=== PATIENT | male | born 1955 | race Caucasian/White ===

== ENCOUNTER → 2020-02-01 11:25 | Outpatient (BNVA) | payer MEDICARE, SELFPAY | PROVIDERS: Family Provider Family Medicine; Visit Provider Nurse Practitioner Family | DX: Z20.828 Contact with and (suspected) exposure to other viral communicable diseases (principal); J06.9 Acute upper respiratory infection, unspecified; R43.0 Anosmia | CPT/HCPCS: 87635 ==

== ENCOUNTER → 2023-06-13 08:38 | Outpatient (BNVA) | payer MEDICARE, SELFPAY | PROVIDERS: Family Provider Family Medicine; PCP Family Medicine; Visit Provider Nurse Practitioner Family | DX: C44.311 Basal cell carcinoma of skin of nose (principal); L30.4 Erythema intertrigo; L57.8 Other skin changes due to chronic exposure to nonionizing radiation; D22.5 Melanocytic nevi of trunk; L81.4 Other melanin hyperpigmentation; L82.1 Other seborrheic keratosis | CPT/HCPCS: 11102; 99214 ==

== ENCOUNTER → 2023-07-01 14:36 | Outpatient (BNVA) | payer MEDICARE, SELFPAY | PROVIDERS: Family Provider Family Medicine; PCP Family Medicine; Visit Provider Dermatology | DX: C44.311 Basal cell carcinoma of skin of nose (principal); C44.629 Squamous cell carcinoma of skin of left upper limb, including shoulder; C44.42 Squamous cell carcinoma of skin of scalp and neck; S50.811A Abrasion of right forearm, initial encounter; X58.XXXA Exposure to other specified factors, initial encounter; Z86.006 Personal history of melanoma in-situ; L57.0 Actinic keratosis; Z85.828 Personal history of other malignant neoplasm of skin | CPT/HCPCS: 99214 ==

== ENCOUNTER → 2023-07-31 11:25 | Outpatient (BNVA) | payer MEDICARE, SELFPAY | PROVIDERS: Family Provider Family Medicine; PCP Family Medicine; Visit Provider Dermatology | DX: C44.311 Basal cell carcinoma of skin of nose (principal); C44.629 Squamous cell carcinoma of skin of left upper limb, including shoulder; C44.42 Squamous cell carcinoma of skin of scalp and neck; Z86.006 Personal history of melanoma in-situ; Z85.828 Personal history of other malignant neoplasm of skin; L57.0 Actinic keratosis | CPT/HCPCS: 17000; 99214 ==

== ENCOUNTER → 2023-10-09 14:35 | Outpatient (BNVA) | payer MEDICARE, SELFPAY | PROVIDERS: Family Provider Family Medicine; PCP Family Medicine; Visit Provider Dermatology | DX: C44.311 Basal cell carcinoma of skin of nose (principal); C44.629 Squamous cell carcinoma of skin of left upper limb, including shoulder; C44.42 Squamous cell carcinoma of skin of scalp and neck; Z86.006 Personal history of melanoma in-situ; Z85.828 Personal history of other malignant neoplasm of skin; L72.0 Epidermal cyst; L82.1 Other seborrheic keratosis; L81.4 Other melanin hyperpigmentation; L57.0 Actinic keratosis | CPT/HCPCS: 99214 ==

== ENCOUNTER → 2024-01-15 14:40 | Outpatient (BNVA) | payer MEDICARE, SELFPAY | PROVIDERS: Family Provider Family Medicine; PCP Family Medicine; Visit Provider Dermatology | DX: D48.5 Neoplasm of uncertain behavior of skin (principal); C44.311 Basal cell carcinoma of skin of nose; C44.629 Squamous cell carcinoma of skin of left upper limb, including shoulder; C44.42 Squamous cell carcinoma of skin of scalp and neck; L57.0 Actinic keratosis; L82.1 Other seborrheic keratosis; L81.4 Other melanin hyperpigmentation; Z85.828 Personal history of other malignant neoplasm of skin; Z86.006 Personal history of melanoma in-situ | CPT/HCPCS: 11102; 17000; 99214 ==

== ENCOUNTER 2024-04-23 11:32 | Inpatient (IN) | payer MEDICARE, SELFPAY ==
[2024-04-23] VITALS (7 sets, daily range): BP systolic 119–166; BP diastolic 57–90; PULSE 78–83; RESP 18–22; TEMP 36.4–36.6; O2SAT 90–99
--- NOTE | 2024-04-23 11:39 | XR_ITS ---
WS: [id number] Exam: XR chest 1V portable [id number] Date/Time of Exam: 04/23/2024 11:39 AM Reason For Exam: weakness Comparison 06/11/2018. Lungs are fully expanded. No consolidated infiltrates. LEFT basal pleural effusion. Also probable sma ll RIGHT basal pleural effusion. The heart is enlarged but unchanged in size. Slightly increased pulm onary vascularity. Bony structures are intact. The mediastinum is normal in contour. XR/XR chest 1V portable [id number] IMPRESSION: 1. Small bibasal pleural effusions. 2. Cardiac enlargement unchanged. Pulmonary vascularity is increased. Some degr ee of mild cardiac decompensation might be considered.
--- NOTE | 2024-04-23 11:39 | ECG_ITS ---
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 Measurements Intervals [place] Rate: 79 P: 0 ME: 0 QRS: -74 QRSD: 101 T: 80 QT: 380 QTc: 437 Interpretive Statements SUPRAVENTRICULAR RHYTHM LEFT AXIS DEVIATION [QRS AXIS < -30] LOW QRS VOLTAGE IN PRECORDIAL LEADS [QRS DEFLECTION < 1.0 mV IN CHEST LEADS] ANTEROLATERAL MYOCARDIAL INFARCTION , PROBABLY OLD [40+ ms Q WAVE IN I/aVL/V3-V6] Compared to ECG 06/12/2018 04:53:14 Supraventricular rhythm now present Left-axis deviation now present Sinus rhythm no longer present Left ventricular hypertrophy no longer present ST (T wave) deviation no longer present Myocardial infarct finding still present Electronically Signed On 04-24-2024 13:19:22 LOAN SECRETARY by Elio Wang M.D. [id number]
[2024-04-23 12:18] LABS: Basophils % 0.6 %; Eosinophils # 0.5 10^3/uL (0.0-0.8); Eosinophils % 7.7 %; Hematocrit 36.8 % (37-53); Lymphocytes # 0.8 10^3/uL (0.8-4.8); Lymphocytes % 12.8 %; Mean Corpuscular HGB Conc 28.8 g/dL (30-55); Mean Corpuscular Hemoglobin 24.4 pg (27-33); Mean Corpuscular Volume 84.8 fl (82-101); Mean Platelet Volume 9.5 fL (7.4-10.4); Monocytes # 0.5 10^3/uL (0.2-0.9); Monocytes % 7.5 %; Neutrophils % 70.8 %; Nucleated Red Blood Cells % 0 %; Platelet Count 309 10^3/cmm (157-399); Red Blood Count 4.34 10^6/uL (3.85-5.65); Red Cell Distribution Width 16.9 % (12.1-15.1); White Blood Count 6.23 10^3/uL (3.29-11.43)
[2024-04-23 12:35] LABS: Alanine Aminotransferase < 5 U/L (0-41); Albumin Level 3.3 g/dL (3.5-5.2); Alkaline Phosphatase 199 U/L (40-130); Anion Gap 19.1 (5-19); Aspartate Amino Transferase 9 U/L (0-40); Blood Urea Nitrogen 41 mg/dL (8-23); Calcium 8.5 mg/dL (8.5-10.5); Carbon Dioxide 21 mmol/L (22-29); Chloride 103 mmol/L (98-107); Globulin 3.1 g/dL (1.3-4.6); Glomerular Filtration Rate 19.5 mL/min (90-130); Glucose 219 mg/dL (65-115); Lipase 28 U/L (13-60); Osmolality Calculated 305 mOsm/kg (285-295); Potassium 4.1 mmol/L (3.5-5.1); Sodium 139 mmol/L (136-145); Total Bilirubin 0.8 mg/dL (0.15-1.2); Total Protein 6.4 g/dL (6.6-8.7)
--- NOTE | 2024-04-23 13:17 | W.ED.WEAKNES ---
HPI - Weakness General: Chief complaint: Weakness Stated complaint: generalized weakness Time Seen by Provider: 04/23/24 12:49 History of Present Illness: 68-year-old man with a history of morbid obesity, skin cancer taking injections of Libtayo every 3 weeks, atrial fibrillation and chronic anticoagulation on Eliquis, hyperlipidemia, hypertension, diabetes, congestive heart failure, and chronic kidney disease who presents emergency room with generalized weakness that has been worsening over the last month or 2. They had gone to see their primary today who sent him to the emergency room. He was requiring oxygen. He is not normally. He has has increased cough. Also has had nausea and vomiting for some time now. No altered mental status. No focal motor deficits. No fevers. No abdominal pain. says he is just gotten so weak he can barely get up. No chest pain. He does feel short of breath often. She says when he gets short of breath sometimes she will let him use his oxygen which helped him. Review of Systems Narrative: Constitutional symptoms: Negative except as documented in HPI. Skin symptoms: Negative except as documented in HPI. Eye symptoms: Negative except as documented in HPI. ENMT symptoms: Negative except as documented in HPI. Respiratory symptoms: Negative except as documented in HPI. Cardiovascular symptoms: Negative except as documented in HPI. Gastrointestinal symptoms: Negative except as documented in HPI. Genitourinary symptoms: Negative except as documented in HPI. Musculoskeletal symptoms: Negative except as documented in HPI. Neurologic symptoms: Negative except as documented in HPI. Psychiatric symptoms: Negative except as documented in HPI. Endocrine symptoms: Negative except as documented in HPI. [facility] PFSH: Medical History Anemia Bronchitis CAD (coronary artery disease) Chest pain Chronic kidney disease, stage 3 Dental infection Dyspnea Epistaxis History of malignant melanoma History of nonmelanoma skin cancer Hypercholesterolemia Hypokalemia Lung mass Palpitations Sleep apnea Solitary lung nodule Type 2 diabetes mellitus Surgical History Status post tracheostomy Social History Smoking and tobacco/nicotine status: never used tobacco/nicotine Second hand smoke exposure: Yes Alcohol intake: never Substance/Drug Use: never Physical Exam Narrative: EXAM NARRATIVE: General: Alert, no acute distress. Skin: Warm, dry. Head: Normocephalic, atraumatic. Neck: Supple, trachea midline. Eye: Extraocular movements are intact. Ears, nose, mouth and throat: Tacky oral mucosa Cardiovascular: Regular, Normal peripheral perfusion. Respiratory: Coarse breath sounds, mild increased work of breathing. Patient is requiring oxygen. Gastrointestinal: Soft, Nontender, Non distended Musculoskeletal: Normal ROM, no deformity. Neurological: Alert and oriented, No focal neurological deficit observed. Psychiatric: Cooperative, appropriate mood & affect. Course Vital Signs: Vital signs: Vital Signs Temperature 97.5 F L 04/23/24 11:50 Pulse Rate 78 04/23/24 14:07 Respiratory Rate 18 04/23/24 11:50 Blood Pressure 158/74 04/23/24 14:07 Pulse Oximetry 98 04/23/24 14:07 Oxygen Delivery Me thod Room Air 04/23/24 14:07 MDM - Weakness Medical Decision Making Medical decision making: Differential diagnosis for patient presenting with generalized weakness including but not limited to and based on the above HPI, review of systems and physical exam: Sepsis. Dehydration. Renal failure. Electrolyte abnormalities. Anemia. Congestive heart failure. Hypotension. Coronary syndrome. Hepatitis. Cirrhosis. Infections such as pneumonia, urinary tract infection, Tick bourne illness, Cellulitis, Viral infections including influenza and Covid-19. Workup: labwork and lab/exam driven imaging ordered to evaluate, rule in and rule out above pathologies. EKG: Time 1259. Rate 79. Supraventricular rhythm. Interference. Nonspecific ST wave abnormality, no ectopy, normal TX & QRS intervals, This was reviewed and interpreted by myself the ER physician at 1302. Repeat EKG: Time 1526. Rate 80. Supraventricular rhythm. Interference. Nonspecific ST wave abnormality, no ectopy, normal TX & QRS intervals, This was reviewed and interpreted by myself the ER physician at 1530. No significant changes from EKG done previously in the emergency room. Chest x-ray: Small bibasal pleural effusions. Cardiac enlargement unchanged. Increased pulmonary vascularity. However on exam he appears dry. No pneumothorax. This was reviewed and interpreted by myself the emergency room physician. I also reviewed the radiology report. Lab Review: Laboratory results were reviewed and interpreted by myself the emergency room physician. No leukocytosis. Stable anemia. BUN and creatinine are 41 and 3.2. This is elevated from his labs in 2019, however I reviewed labs from 3 days ago and from a month ago at [facility]. Most recently he was 43 and 3.5. Hemoglobin was 10.5 at that time so that is stable as well. Urinalysis is negative for infection here. However he is positive for RSV. AB.2 on 2 L nasal cannula. O2 sat is 95% on this 2 L. Some metabolic acidosis but minimal CO2 retention. I reviewed the patient's medical record. Reexamination: Patient has sats in the upper 90s on 2 L nasal cannula. However he drops when off with any movement. He is extremely weak still. No altered mental status while he is been here. No focal motor deficits. While at rest no increased work of breathing. And while on oxygen. Consultation: I spoke with Dr. Ring who is on-call for the hospitalist service who agrees to admission. Assessment and plan: RSV Hypoxemia Congestive heart failure Weakness Debility Chronic renal insufficiency Malignant melanoma receiving chemotherapy Atrial fibrillation on chronic anticoagulation ?Patient stable on 2 L nasal cannula at this time. PCP and family are extremely worried about his worsening weakness and requesting further workup into this. -I discussed the patient with the hospitalist on-call who is admitting the patient. - Discussed findings and plan with patient. Answered any questions. - All laboratory values were reviewed and interpreted personally by myself, the ER physician - All imaging was reviewed and interpreted personally by myself, the ER physician. - Evaluation and treatment of this problem were appropriate in the emergency setting Lab Data 04/23/24 12:01 04/23/24 12:01 Radiology Impressions Chest X-Ray 04/23/24 11:39 IMPRESSION: 1. Small bibasal pleural effusions. 2. Cardiac enlargement unchanged. Pulmonary vascularity is increased. Some degree of mild cardiac decompensation might be considered. Laboratory Results WBC 6.23 10^3/uL (3.29-11.43) 04/23/24 12:01 RBC 4.34 10^6/uL (3.85-5.65) 04/23/24 12:01 Hgb 10.60 g/dL (11.27-16.99) L 04/23/24 12:01 Hct 36.8 % (37-53) L 04/23/24 12:01 MCV 84.8 fl (82-101) 04/23/24 12:01 MCH 24.4 pg (27-33) L 04/23/24 12:01 MCHC 28.8 g/dL (30-55) L 04/23/24 12:01 RDW 16.9 % (12.1-15.1) H 04/23/24 12:01 Plt Count 309 10^3/cmm (157-399) 04/23/24 12:01 MPV 9.5 fL (7.4-10.4) 04/23/24 12:01 Neut % (Auto) 70.8 % 04/23/24 12:01 Lymph % (Auto) 12.8 % 04/23/24 12:01 Moody % (Auto) 7.5 % 04/23/24 12:01 Eos % (Auto) 7.7 % 04/23/24 12:01 Baso % (Auto) 0.6 % 04/23/24 12:01 Neut # (Auto) 4.40 10^3/uL (1.8-7.7) 04/23/24 12:01 Lymph # (Auto) 0.8 10^3/uL (0.8-4.8) 04/23/24 12:01 Moody # (Auto) 0.5 10^3/uL (0.2-0.9) 04/23/24 12:01 Eos # (Auto) 0.5 10^3/uL (0.0-0.8) 04/23/24 12:01 Baso # (Auto) 0.0 10^3/uL (0.0-0.1) 04/23/24 12:01 Nucleated RBC % (auto) 0 % 04/23/24 12:01 Nucleated RBCs # 0.0 /100WBC 04/23/24 12:01 Specimen Type Arterial 04/23/24 13:53 Sample Site Radial, right 04/23/24 13:53 ABG pH 7.25 (7.35-7.45) L 04/23/24 13:53 ABG pCO2 53.5 mmHg (35-45) H 04/23/24 13:53 ABG pO2 92.2 mmHg (80.0-100.0) 04/23/24 13:53 ABG HCO3 23.7 mmol/L (22-26) 04/23/24 13:53 ABG O2 Saturation 97.2 04/23/24 13:53 ABG Base Excess -3.8 mmol/L (-2.0-2.0) L 04/23/24 13:53 Jose Angel Test Pos 04/23/24 13:53 A-a O2 Gradient Not Reportable 04/23/24 13:53 Hematocrit 32.3 % (42-52) L 04/23/24 13:53 Hgb O2 Saturation 94.6 % (95-100) L 04/23/24 13:53 Carboxyhemoglobin 1.7 %THgb (0.4-20.1) 04/23/24 13:53 Methemoglobin 1.0 % (0.4-1.5) 04/23/24 13:53 Total Hemoglobin 10.5 g/dL (14-18) L 04/23/24 13:53 Sodium 142.0 mmol/L (131-143) 04/23/24 13:53 Potassium 4.0 mmol/L (3.5-5.0) 04/23/24 13:53 Glucose 212.0 mg/dL (70-115) H 04/23/24 13:53 Ionized Calcium 1.2 mmol/L (1.1-1.4) 04/23/24 13:53 O2 Delivery Device Nc 04/23/24 13:53 O2 Liters/Min 2.0 % 04/23/24 13:53 Racking Machine Operator ID [place] 04/23/24 13:53 Sodium 139 mmol/L (136-145) 04/23/24 12:01 Potassium 4.1 mmol/L (3.5-5.1) 04/23/24 12:01 Chloride 103 mmol/L (98-107) 04/23/24 12:01 Carbon Dioxide 21 mmol/L (22-29) L 04/23/24 12:01 Anion Gap 19.1 (5-19) H 04/23/24 12:01 BUN 41 mg/dL (8-23) H 04/23/24 12:01 Creatinine 3.2 mg/dL (0.7-1.2) H 04/23/24 12:01 GFR Calculation 19.5 mL/min (90-130) L 04/23/24 12:01 Glucose 219 mg/dL (65-115) H 04/23/24 12:01 Calculated Osmolality 305 mOsm/kg (285-295) H 04/23/24 12:01 Lactic Acid 1.0 mmol/L (0.5-2.2) 04/23/24 12:01 Calcium 8.5 mg/dL (8.5-10.5) 04/23/24 12:01 Phosphorus 3.3 mg/dL (2.5-4.5) 04/23/24 12:01 Magnesium 2.2 mg/dL (1.7-2.3) 04/23/24 12:01 Total Bilirubin 0.8 mg/dL (0.15-1.2) 04/23/24 12:01 AST 9 U/L (0-40) 04/23/24 12:01 ALT < 5 U/L (0-41) 04/23/24 12:01 Alkaline Phosphatase 199 U/L (40-130) H 04/23/24 12:01 Troponin T Baseline 128 ng/L (0-15) H* 04/23/24 12:01 Troponin T 120 Minute 125.0 ng/L (0-15) H 04/23/24 14:00 Delta Troponin T -3.0 ABS# (0-10) L 04/23/24 14:00 C-Reactive Protein 61.7 mg/L (0.0-4.9) H 04/23/24 12:01 NT-Pro-B Natriuret Pep 7765 pg/mL (0-125) H 04/23/24 12:01 Total Protein 6.4 g/dL (6.6-8.7) L 04/23/24 12:01 Albumin 3.3 g/dL (3.5-5.2) L 04/23/24 12:01 Globulin 3.1 g/dL (1.3-4.6) 04/23/24 12:01 Lipase 28 U/L (13-60) 04/23/24 12:01 Urine Color Yellow (Yellow) 04/23/24 15:02 Urine Appearance Cloudy (CLEAR) A 04/23/24 15:02 Urine pH 5.0 (5-7) 04/23/24 15:02 Ur Specific [place] 1.014 (1.005-1.030) 04/23/24 15:02 Urine Protein 2+ (Negative) A 04/23/24 15:02 Urine Glucose (UA) 1+ (Normal) H 04/23/24 15:02 Urine Ketones Negative (Negative) 04/23/24 15:02 Urine Blood Negative (Negative) 04/23/24 15:02 Urine Nitrate Negative (Negative) 04/23/24 15:02 Urine Bilirubin Negative (Negative) 04/23/24 15:02 Urine Urobilinogen 1.0 mg/dL (Negative) 04/23/24 15:02 Ur Leukocyte Esterase Negative (Negative) 04/23/24 15:02 Amorphous Sediment Not Reportable 04/23/24 15:02 Coronavirus (PCR) Negative (Negative) 04/23/24 13:19 Influenza A (PCR) Negative (Negative) 04/23/24 13:19 Influenza Type B (PCR) Negative (Negative) 04/23/24 13:19 RSV (PCR) Positive (Negative) A 04/23/24 13:19 All radiology interpretation(s) finalized by discharge Discharge Plan Discharge Patient Disposition: Admitted As Inpatient Clinical Impression: Respiratory syncytial virus, History of malignant melanoma, Hypoxemia, Congestive heart failure, Immunosuppression, Debility, Weakness, Chronic kidney disease, Nausea & vomiting Condition: Stable Coding Level of Care Code ED Vision Care Associate for Chg Fwd Related Data Home Medications Medication Instructions Recorded Confirmed aspirin 81 mg tablet,delayed 81 mg PO DAILY 01/02/21 04/23/24 release (Adult Low Dose Aspirin) hydrochlorothiazide 25 mg tablet 25 mg PO DAILY 01/02/21 04/23/24 allopurinol 100 mg tablet 100 mg PO DAILY 01/03/22 04/23/24 atorvastatin 40 mg tablet 40 mg PO QPM 04/23/24 04/23/24 brinzolamide 1 %-brimonidine 0.2 % 1 drp ophthalmic (eye) BID 04/23/24 04/23/24 eye drops,suspension (Simbrinza) diltiazem HCl 120 mg 120 mg PO DAILY 04/23/24 04/23/24 capsule,extended release 24 hr furosemide 40 mg tablet 40 mg PO BID 04/23/24 04/23/24 insulin degludec 200 unit/mL (3 100 unit SUBCUT BID 04/23/24 04/23/24 mL) subcutaneous pen (Tresiba FlexTouch U-200 insulin) lisinopril 40 mg tablet 40 mg PO DAILY 04/23/24 04/23/24 ondansetron HCl 4 mg tablet 4 mg PO Q6H PRN Nausea And Vomiting 04/23/24 04/23/24 potassium chloride 10 mEq 20 meq PO BID 04/23/24 04/23/24 tablet,extended release Allergies Allergy/AdvReac Type Severity Reaction Status Date / Time No Known Allergies Allergy Verified 04/09/22 15:36
[2024-04-23 13:26] LABS: C Reactive Protein 61.7 mg/L (0.0-4.9); Magnesium 2.2 mg/dL (1.7-2.3); Phosphorus 3.3 mg/dL (2.5-4.5)
[2024-04-23 13:30] LABS: Troponin(5th) Baseline 128 ng/L (0-15)
[2024-04-23 14:04] LABS: ABG PCO2 53.5 mmHg (35-45); ABG PH Result 7.25 (7.35-7.45); Arterial Blood Gas Hematocrit 32.3 % (42-52); Base Excess ABG -3.8 mmol/L (-2.0-2.0); Blood Gas Allen Test Pos; Blood Gas Operator Identificat WALCI; Blood Gas Sample Site Radial, right; Blood Gas Sample Type Arterial; Carboxyhemoglobin 1.7 %THgb (0.4-20.1); HCO3 ABG 23.7 mmol/L (22-26); HGB O2 Sat 94.6 % (95-100); Ionized Calcium Level - ABG 1.2 mmol/L (1.1-1.4); Oxygen Device NC; Oxygen Saturation ABG 97.2; PO2 ABG 92.2 mmHg (80.0-100.0); Total Hemoglobin 10.5 g/dL (14-18)
[2024-04-23 14:15] LABS: Influenza A NEGATIVE (Negative); Influenza B NEGATIVE (Negative); SARS-CoV-2 PCR NEGATIVE (Negative)
[2024-04-23 14:23] LABS: Respiratory Syncytial Virus Ce POSITIVE (Negative)
[2024-04-23 14:42] LABS: NT Pro B Type Natriuretic Pept 7765 pg/mL (0-125)
[2024-04-23 15:10] LABS: Bilirubin Urine Negative (Negative); Blood Urine Negative (Negative); Glucose Urine UA 1+ (Normal); Ketones Urine Negative (Negative); Leukocyte Esterase Urine Negative (Negative); Nitrate Urine Negative (Negative); Protein Urine 2+ (Negative); Specific Gravity, Urine 1.014 (1.005-1.030); Urine Appearance Cloudy (CLEAR); Urine Color Yellow (Yellow)
[2024-04-23 15:15] LABS: Add Urine Microscopic? YES; Bacteria Urine None Seen /hpf; Hyaline Casts Urine 52.11 /lpf; RBC Urine 0-2 /hpf (0-2); Squamous Epithelial Cell Urine 0-5 /hpf (0-5); WBC Urine 0-5 /hpf (0-5)
--- NOTE | 2024-04-23 15:26 | ECG_ITS ---
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 Measurements Intervals [place] Rate: 80 P: 0 NH: 0 QRS: -83 QRSD: 96 T: 98 QT: 377 QTc: 435 Interpretive Statements SUPRAVENTRICULAR RHYTHM LEFT AXIS DEVIATION [QRS AXIS < -30] ANTERIOR MYOCARDIAL INFARCTION , PROBABLY OLD [40+ ms Q WAVE AND/OR ST/T ABNORMALITY IN V3/V4] Compared to ECG 04/23/2024 12:59:11 No significant changes Electronically Signed On 04-24-2024 13:32:03 STAFF NURSE ICU RESOURCE TEAM by Elio Wang M.D. [id number]
[2024-04-23 15:40] LABS: UA Slide Review UA Slide Review Perf
--- NOTE | 2024-04-23 15:52 | CTR_ITS ---
PROCEDURE INFORMATION: Exam: CT Chest Without Contrast; Diagnostic Exam date and time: 04/23/2024 4:14 PM Age: 68 years old Clinical indication: Abdominal tenderness; Dyspnea; Additional info: AMS, chills, weakness, chemo, melanoma TECHNIQUE: Imaging protocol: Diagnostic computed tomography of the chest without contrast. Radiation optimization: All CT scans at this facility use at least one of these dose optimization techniques: automated exposure control; mA and/or kV adjustment per patient size (includes targeted exams where dose is matched to clinical indication); or iterative reconstruction. COMPARISON: CR XR chest 1V portable [id number] 04/23/2024 12:02 PM RADIATION DOSE METRICS: Total DLP (mGy-cm): 1607.7 FINDINGS: Thyroid: Grossly unremarkable. Lungs: Focal ground-glass and nodular opacities in both upper lobes (for example, image 19 of series 6 and image 62 of series 14). There is mild interstitial edema. Small bilateral pleural effusions. No pneumothorax. Heart: Mild-moderate cardiomegaly. No pericardial effusion. Coronary arteries: There are incidental coronary artery calcifications. Mediastinal space: Trachea and airway are grossly patent. No evidence of mediastinal hemorrhage or hematoma. Lymph nodes: No evidence of mediastinal adenopathy. Evaluation for hilar adenopathy is limited by lack of IV contrast. Vasculature: No evidence of aneurysmal dilatation of the thoracic aorta. Evaluation for acute vascular injury or thrombosis is limited by lack of IV contrast. Bones/joints: No evidence of acute fracture or aggressive osseous lesion. Soft tissues: No evidence of fluid collection or hematoma in the superficial soft tissues. PROCEDURE INFORMATION: Exam: CT Abdomen And Pelvis Without Contrast Exam date and time: 04/23/2024 4:14 PM Age: 68 years old Clinical indication: Abdominal tenderness; Dyspnea; Additional info: AMS, chills, weakness, chemo, melanoma TECHNIQUE: Imaging protocol: Computed tomography of the abdomen and pelvis without contrast. Radiation optimization: All CT scans at this facility use at least one of these dose optimization techniques: automated exposure control; mA and/or kV adjustment per patient size (includes targeted exams where dose is matched to clinical indication); or iterative reconstruction. COMPARISON: CT thoracic spin wo con* [id number] 04/23/2024 4:14 PM RADIATION DOSE METRICS: Total DLP (mGy-cm): 1607.7 FINDINGS: Diaphragm: No evidence of diaphragmatic defect. Liver: No evidence of focal hepatic lesion within limitation of a noncontrast exam. Gallbladder and biliary ducts: Gallbladder is unremarkable. No evidence of intra-hepatic or extra-hepatic biliary dilatation. Pancreas: Moderately atrophic. Otherwise grossly unremarkable. Spleen: Grossly unremarkable. Adrenal glands: Grossly unremarkable. Kidneys and ureters: Mildly complex 4 cm left upper pole renal lesion, detailed evaluation of which is limited by artifact, possibly a simple cyst. Correlation with renal ultrasound is recommended when clinically feasible. Moderate right-sided hydronephrosis without evidence of ureteral stone. Stomach and bowel: Colonic diverticulosis without evidence of acute diverticulitis. No bowel obstruction or perienteric inflammatory changes. Appendix: The appendix is not visualized, however there are no findings to suggest appendicitis. Intraperitoneal space: No evidence of free air or fluid collection. Vasculature: No evidence of aneurysmal dilitation of abdominal aorta. Lymph nodes: No evidence of adenopathy. Urinary bladder: Grossly unremarkable. Reproductive: Grossly unremarkable. Bones/joints: No evidence of acute fracture or aggresive osseous lesion. Soft tissues: Soft tissue edema without evidence of fluid collection or hematoma in the superficial soft tissues. CT/[place] [id number] IMPRESSION: 1. Cardiomegaly, mild interstitial edema and small bilateral pleural effusions. 2. Focal nodular opacities and ground-glass in both upper lobes, possibly reflecting alveolar edema or developing infection. Metastatic disease would be difficult to exclude given history of primary malignancy. Consider follow-up CT of the chest in 4-6 weeks to assess for resolution. If persistent, PET-CT may be helpful. IMPRESSION: 1. Moderate right-sided hydronephrosis without evidence of ureteral stone. 2. Mildly complex 4 cm left upper pole renal lesion, detailed evaluation of which is limited by artifact, possibly a simple cyst. Correlation with renal ultrasound is recommended when clinically feasible.
--- NOTE | 2024-04-23 15:52 | USR_ITS ---
PROCEDURE INFORMATION: Exam: US Duplex Lower Extremity Veins, Bilateral Exam date and time: 04/23/2024 5:53 PM Age: 68 years old Clinical indication: Swelling (edema) of limb; Lower extremity, bilateral TECHNIQUE: Imaging protocol: Real-time duplex ultrasound of the bilateral extremities with 2-D park scale, color Doppler flow and spectral waveform analysis including responses to compression and other maneuvers (when performed) with image documentation. Complete exam focused on the lower extremity veins. COMPARISON: [place] [id number] 04/23/2024 4:14 PM FINDINGS: Right deep veins: The common femoral, femoral, proximal profunda femoral and popliteal veins are patent without evidence of thrombus and demonstrate normal waveforms. Visualized deep calf veins are patent. Left deep veins: The common femoral, femoral, proximal profunda femoral and popliteal veins are patent without evidence of thrombus and demonstrate normal waveforms. Superficial veins: Bilateral saphenofemoral junctions are patent without thrombus. No evidence of thrombophlebitis. Soft tissues: No evidence of fluid collection. US/CV venous duplex [facility] [id number] IMPRESSION: 1. No sonographic evidence of deep venous thrombosis in either lower extremity.
--- NOTE | 2024-04-23 15:52 | CTR_ITS ---
PROCEDURE INFORMATION: Exam: CT Thoracic Spine Without Contrast Exam date and time: 04/23/2024 4:14 PM Age: 68 years old Clinical indication: Pain in thoracic spine; Without myelpathy or radiculopathy; Additional info: Cellulitis, drainage, level of t10 TECHNIQUE: Imaging protocol: Computed tomography of the thoracic spine without contrast. Radiation optimization: All CT scans at this facility use at least one of these dose optimization techniques: automated exposure control; mA and/or kV adjustment per patient size (includes targeted exams where dose is matched to clinical indication); or iterative reconstruction. COMPARISON: [place] [id number] 04/23/2024 4:14 PM RADIATION DOSE METRICS: Total DLP (mGy-cm): 1600.4 FINDINGS: Bones/joints: No evidence of fracture or subluxation. No evidence of thecal sac stenosis. No evidence of aggressive osseous lesion. Multilevel bridging anterior osteophytes. Moderate-severe uncovertebral hypertrophy is noted of the lower cervical spine. Soft tissues: Paraspinal soft tissues are unremarkable. Lungs: Please see separate report of concurrent CT of the chest for pertinent findings. CT/CT thoracic spin wo con* [id number] IMPRESSION: 1. No evidence of fracture or subluxation of the thoracic spine.
--- NOTE | 2024-04-23 15:56 | P.HP_ITS ---
Providers/Chief Complaint 2 Primary Care Provider: Antionette Saavedra MD Chief Complaint: generalized weakness History of Present Illness Rob Fenton is a 68 year old male with a past medical history of CAD, status post LAD stenting, history of type 2 diabetes mellitus, hypertension and hyperlipidemia history of melanoma, on chemotherapy last session of chemotherapy was 4 weeks ago, history of CKD who presents to [facility] due to progressive weakness, fatigue, altered mental status, cough, sinus congestion, poor appetite. Currently patient alert to person, place not to time he can follow commands but frequently becomes confused at bedside helps with history taking. Patient tells me that he has a history of melanoma in multiple locations, is on chemotherapy, not on any immunotherapy, she tells over the last 4 weeks he has been progressively more weak, fatigue, malaise, poor appetite episodes of confusion, he has been feeling lightheaded, he has had a fall he does have an area over his back that has had drainage. He is appetite has decreased, he has had a cough, complains of shortness of breath,. Patient tells me he does not feel well, fatigue, malaise, fevers, chills, no chest pain, does report shortness of breath does report a cough, no abdominal pain, no diarrhea Review of Systems 2 Const: Reports: fever(s), chills, body aches, fatigue and malaise Eyes: Denies: change in vision Card: Denies: chest pain Resp: Denies: dyspnea GI: Reports: nausea and vomiting; Denies: abdominal pain : Denies: flank pain or difficulty urinating Musc: Denies: neck pain or back pain Skin/Breast: Reports: rash Neuro: Reports: weakness in extremities and dizziness; Denies: headache(s), numbness in extremities or Slurred speech present Endo: Denies: polyuria Medications/Allergies Home Medications Medication Instructions Recorded Confirmed Last Taken Type aspirin 81 mg tablet,delayed 81 mg PO DAILY 01/02/21 04/23/24 Unknown History release (Adult Low Dose Aspirin) hydrochlorothiazide 25 mg tablet 25 mg PO DAILY 01/02/21 04/23/24 Unknown History allopurinol 100 mg tablet 100 mg PO DAILY 01/03/22 04/23/24 Unknown History atorvastatin 40 mg tablet 40 mg PO QPM 04/23/24 04/23/24 Unknown History brinzolamide 1 %-brimonidine 0.2 % 1 drp ophthalmic (eye) BID 04/23/24 04/23/24 Unknown History eye drops,suspension (Simbrinza) diltiazem HCl 120 mg 120 mg PO DAILY 04/23/24 04/23/24 Unknown History capsule,extended release 24 hr furosemide 40 mg tablet 40 mg PO BID 04/23/24 04/23/24 Unknown History insulin degludec 200 unit/mL (3 100 unit SUBCUT BID 04/23/24 04/23/24 Unknown History mL) subcutaneous pen (Tresiba FlexTouch U-200 insulin) insulin lispro 100 unit/mL 50 unit SUBCUT .WITH MEALS 04/23/24 04/23/24 Unknown History subcutaneous pen (Humalog KwikPen (U-100) Insulin) lisinopril 40 mg tablet 40 mg PO DAILY 04/23/24 04/23/24 Unknown History ondansetron HCl 4 mg tablet 4 mg PO Q6H PRN Nausea And Vomiting 04/23/24 04/23/24 Unknown History potassium chloride 10 mEq 20 meq PO BID 04/23/24 04/23/24 Unknown History tablet,extended release Allergies Allergy/AdvReac Type Severity Reaction Status Date / Time No Known Allergies Allergy Verified 04/09/22 15:36 PFSH Acute 2 PFSH: Medical History History of nonmelanoma skin cancer History of malignant melanoma Anemia CAD (coronary artery disease) Epistaxis Bronchitis Chest pain Chronic kidney disease, stage 3 Dyspnea Hypercholesterolemia Hypokalemia Dental infection Lung mass Palpitations Sleep apnea Solitary lung nodule Type 2 diabetes mellitus Surgical History Status post tracheostomy Social History Smoking and tobacco/nicotine status: never used tobacco/nicotine Second hand smoke exposure: Yes Alcohol intake: never Substance/Drug Use: never Vitals/I&O/Wt Last Vital Signs Temp 97.5 F L 04/23/24 11:50 Pulse 78 04/23/24 14:07 Resp 18 04/23/24 11:50 BP 158/74 04/23/24 14:07 Pulse Ox 98 04/23/24 14:07 O2 Del Method Room Air 04/23/24 14:07 04/23/24 04/23/24 04/23/24 06:59 14:59 22:59 Intake Total 0 / 0 Balance 0 / 0 Physical Exam 2 Const: COMMON NORMALS: no acute distress ORIENTATION/CONSCIOUSNESS: Yes awake, Yes oriented to person, Yes oriented to place and Yes confused; not oriented to time Eye: COMMON NORMALS: Equal, round and reactive pupils present Resp: COMMON NORMALS: normal respiratory effort, No retractions, No use of accessory muscles and clear to auscultation bilaterally AUSCULTATION: c rackles and wheezes Cardio: COMMON NORMALS: no JVD, regular rate, regular rhythm, S1 normal heart sound present and S2 normal heart sound present RATE: regular rate RHYTHM: regular rhythm HEART SOUNDS: S1 normal heart sound present and S2 normal heart sound present GI: COMMON NORMALS: Normal to inspection, nondistended, normoactive bowel sounds present, Soft to palpation and non-tender Extremity: COMMON NORMALS: no clubbing, cyanosis or edema and no pedal edema Neuro: COMMON NORMALS: CN's II-XII intact bilaterally and moves all extremities Skin: NARRATIVE SKIN EXAM: I had a T10 level, he has a 5 x 5 cm superficial skin lesion, scant drainage Data 04/23/24 12:01 04/23/24 12:01 A&P Assessment and plan (1) Nausea & vomiting: (2) Chronic kidney disease: (3) History of nonmelanoma skin cancer: (4) Immunosuppression: (5) Weakness: (6) Respiratory syncytial virus: (7) Increased anion gap metabolic acidosis: (8) NSTEMI (non-ST elevated myocardial infarction): (9) Fever: (10) Acute encephalopathy: (11) Acute hypoxic respiratory failure: (12) Congestive heart failure: Plan Acute encephalopathy -Likely secondary to RSV -Concerns for underlying infection given immunocompromise state -CT chest abdomen pelvis -Blood cultures -Elevated CRP, Pro-Chencho -Sed rate -Neurochecks, and a stroke scale -Start broad-spectrum antibiotic therapy vancomycin, Zosyn -CT head -Monitor mentation closely Fevers -Likely sec to RSV -However does have immunocompromise state with history of melanoma -Does have an area of cellulitis on the back measuring 5 x [address] imaging, sed rate, broad-spectrum antibiotic therapy as above -Follow blood cultures -Cultures NSTEMI -No chest pain complaints -History of CAD -aspirin, statin, beta shaquille -Cardiac echo -Serial EKGs, serial troponins, telemetry monitoring- -heparin drip Lower extremity KETTY, venous ultrasound Complaints of shortness of breath -Like diastolic CHF exacerbation, RSV -CT chest -Acute hypoxic respiratory failure Plan -Lasix 40 IV twice daily -Monitor respiratory status closely Type 2 diabetes mellitus -Takes Tresiba 100 units twice daily, NovoLog sliding scale -Decrease Lantus 50 units twice daily, NovoLog sliding scale -Cardiac diet Nausea and vomiting, CT abdomen RAYMOND on CKD, monitor Full code Lovenox reviewed causes Attestations 2 Medical Necessity Statement*: Patient requires hospitalization, for fatigue, malaise, fevers, acute encephalopathy, RAYMOND, RSV, NSTEMI Diagnoses Nausea & vomiting R11.2 Chronic kidney disease N18.9 History of nonmelanoma skin cancer Z85.828 Immunosuppression D84.9 Weakness R53.1 Respiratory syncytial virus B33.8 Increased anion gap metabolic acidosis E87.29 NSTEMI (non-ST elevated myocardial infarction) I21.4 Fever R50.9 Acute encephalopathy G93.40 Acute hypoxic respiratory failure J96.01 Congestive heart failure I50.9
--- NOTE | 2024-04-23 15:58 | CTR_ITS ---
PROCEDURE INFORMATION: Exam: CT Head Without Contrast Exam date and time: 04/23/2024 4:11 PM Age: 68 years old Clinical indication: Altered mental status/memory loss; Additional info: AMS TECHNIQUE: Imaging protocol: Computed tomography of the head without contrast. Radiation optimization: All CT scans at this facility use at least one of these dose optimization techniques: automated exposure control; mA and/or kV adjustment per patient size (includes targeted exams where dose is matched to clinical indication); or iterative reconstruction. COMPARISON: No relevant prior studies available. RADIATION DOSE METRICS: Total DLP (mGy-cm): 1100.28 FINDINGS: Brain: No hemorrhage. No edema. Moderate diffuse cerebral atrophy and mild sequela of chronic small vessel ischemic disease. No mass effect. Cerebral ventricles: No ventriculomegaly. Paranasal sinuses: Visualized sinuses are unremarkable. No fluid levels. Mastoid air cells: Visualized mastoid air cells are well aerated. Bones: Unremarkable. No acute fracture. Soft tissues: Unremarkable. CT/CT head wo con* [id number] IMPRESSION: No acute intracranial abnormality.
--- NOTE | 2024-04-23 16:04 | PC.PHAR ---
patients states the have a stock pile of humalog she and him use the same humalog apparently and they use each others all the time she says?? last fill date over ONE year ago. 03/27/23 per [facility].
[2024-04-23 16:24] LABS: Erythrocyte Sedimentation Rate 60 mm/hr (0-10)
[2024-04-23 16:29] LABS: Procalcitonin 0.19 ng/mL (0-0.5)
--- NOTE | 2024-04-23 19:20 | PC.NURSE ---
arrived Pt arrived on floor at 1850 from ER.
[2024-04-23 19:52] LABS: Troponin 5 6HR Delta -5.3 ng/L (0-12)
[2024-04-23 19:53] LABS: Troponin 5 6HR 122.7 ng/L (0-15)
[2024-04-23 20:30] LABS: Chol HDL Ratio 5.42 mg/dL (1.0-5.00); Cholesterol 130 mg/dL (0-200); HDL Cholesterol 24 mg/dL (60-100); LDL Cholesterol Calculated 77 mg/dL (50-129); LDL HDL Ratio 3.21 RATIO (0.00-3.22); Triglycerides 146 mg/dL (0-150)
[2024-04-23 20:37] LABS: Thyroid Stimulating Hormone 1.81 uIU/mL (0.27-4.20)
[2024-04-23] MEDS: atorvastatin 40 mg Tablet PO (21:02)
[2024-04-23] MEDS: vancomycin 1,000 MG in sodium chloride 0.9% 250 ML 250 MG IV (21:02)
[2024-04-23] MEDS: aspirin 81 mg EC Tablet PO (21:02)
[2024-04-23] MEDS: FUROsemide 10 mg/mL SDV 4mL 40 MG IVP (21:02)
[2024-04-23] MEDS: piperacillin-tazobactam 3.375 GM in sodium chloride 0.9% (plus) 50 ML IV (21:03)
[2024-04-23 21:04] LABS: Glucose Point of Care 181 mg/dL (70-110)
[2024-04-23] MEDS: pantoprazole 40 mg SDV IVP (21:04)
[2024-04-23] MEDS: insulin glargine 100 units/1 mL 50 UNIT SUBCUT (21:05)
[2024-04-23] MEDS: insulin lispro 100 unit/1 mL SUBCUT (21:05)
[2024-04-23] MEDS: heparin 5,000 unit/mL INJ 1 mL IVP (21:06)
[2024-04-23] MEDS: heparin drip 25,000 UNIT/500 ML PREMIX 14 UNIT IV (21:16)
[2024-04-23 22:43] LABS: Glucose Point of Care 168 mg/dL (70-110)
[2024-04-23 23:47] LABS: Estmated Average Glucose 272; Hemoglobin A1C 11.1 % (4.0-6.0)
[2024-04-24] VITALS (23 sets, daily range): BP systolic 116–185; BP diastolic 56–100; PULSE 57–103; RESP 16–33; TEMP 36.4–38; O2SAT 88–100
[2024-04-24 00:25] LABS: Partial Thromboplastin Time 98.3 SECONDS (23.9-36.7)
[2024-04-24 00:38] LABS: MRSA PCR OZH (swab) NOT DETECTED (Negative)
--- NOTE | 2024-04-24 00:38 | PC.NURSE ---
Contacted lab to have PTT run from previously drawn labs, so there would be a baseline PTT. Lab instead came and yoni a PTT while the pts heparin gtt was infusing, causing an inaccurate result. Lab to run blood for admission PTT. Next draw for PTT will be 315.
[2024-04-24 00:56] LABS: Partial Thromboplastin Time 51.1 SECONDS (23.9-36.7)
[2024-04-24] MEDS: piperacillin-tazobactam 3.375 GM in sodium chloride 0.9% (plus) 50 ML IV ×3 (03:32→20:37)
[2024-04-24 03:59] LABS: Basophils # 0.1 10^3/uL (0.0-0.1); Basophils % 0.7 %; Eosinophils # 0.5 10^3/uL (0.0-0.8); Eosinophils % 7.2 %; Hematocrit 42.1 % (37-53); Lymphocytes # 1.1 10^3/uL (0.8-4.8); Lymphocytes % 14.5 %; Mean Corpuscular HGB Conc 27.3 g/dL (30-55); Mean Corpuscular Hemoglobin 23.8 pg (27-33); Mean Corpuscular Volume 87.2 fl (82-101); Mean Platelet Volume 9.2 fL (7.4-10.4); Monocytes # 0.4 10^3/uL (0.2-0.9); Monocytes % 5.8 %; Neutrophils # 5.17 10^3/uL (1.8-7.7); Neutrophils % 71.4 %; Nucleated Red Blood Cells % 0 %; Platelet Count 339 10^3/cmm (157-399); Red Blood Count 4.83 10^6/uL (3.85-5.65); Red Cell Distribution Width 17.1 % (12.1-15.1); White Blood Count 7.24 10^3/uL (3.29-11.43)
[2024-04-24 04:33] LABS: NT Pro B Type Natriuretic Pept 7415 pg/mL (0-125)
[2024-04-24 04:36] LABS: Alanine Aminotransferase < 5 U/L (0-41); Albumin Level 3.8 g/dL (3.5-5.2); Alkaline Phosphatase 225 U/L (40-130); Anion Gap 17.3 (5-19); Aspartate Amino Transferase 10 U/L (0-40); Blood Urea Nitrogen 38 mg/dL (8-23); Calcium 8.9 mg/dL (8.5-10.5); Carbon Dioxide 23 mmol/L (22-29); Chloride 104 mmol/L (98-107); Creatinine Clr Calc Pharmacy 35.0764; Globulin 2.9 g/dL (1.3-4.6); Glomerular Filtration Rate 20.3 mL/min (90-130); Glucose 95 mg/dL (65-115); Magnesium 2.3 mg/dL (1.7-2.3); Osmolality Calculated 299 mOsm/kg (285-295); Phosphorus 3.8 mg/dL (2.5-4.5); Potassium 4.3 mmol/L (3.5-5.1); Sodium 140 mmol/L (136-145); Total Bilirubin 0.9 mg/dL (0.15-1.2); Total Protein 6.7 g/dL (6.6-8.7)
[2024-04-24] MEDS: hyDRALAzine 20 mg/mL INJ 1 mL 10 MG IVP (04:38)
[2024-04-24 04:55] LABS: Partial Thromboplastin Time 44.8 SECONDS (23.9-36.7)
[2024-04-24] MEDS: heparin 5,000 unit/mL INJ 1 mL IVP (05:14)
--- NOTE | 2024-04-24 05:40 | PC.NURSE ---
When going to increase heparin gtt, realized that dose had been put in mg/kg/hr instead of mls per hour. Pt PTT is 44.8. Notified Dr. Batista continue pt at increased ml/hr, recheck PTT in 1 hour. hatch supervisor notified.
[2024-04-24] MEDS: FUROsemide 10 mg/mL SDV 4mL 40 MG IVP ×2 (06:28→20:36)
[2024-04-24] MEDS: pantoprazole 40 mg SDV IVP ×2 (06:28→20:36)
[2024-04-24 06:34] LABS: Partial Thromboplastin Time 227.1 SECONDS (23.9-36.7)
[2024-04-24 06:41] LABS: Glucose Point of Care 119 mg/dL (70-110)
[2024-04-24] MEDS: aspirin 81 mg EC Tablet PO (08:20)
[2024-04-24] MEDS: lisinopril 20 mg Tablet 40 MG PO (08:20)
[2024-04-24] MEDS: metoprolol succinate ER (24 HR) 50 mg Tablet PO (08:20)
[2024-04-24] MEDS: allopurinol 100 mg Tablet PO (08:20)
[2024-04-24] MEDS: dilTIAZem ER (24HR) 120 mg Capsule PO (08:20)
--- NOTE | 2024-04-24 09:36 | USR_ITS ---
PROCEDURE INFORMATION: Exam: US Retroperitoneal, Complete, Kidneys and Bladder Exam date and time: 04/24/2024 12:49 PM Age: 68 years old Clinical indication: Condition or disease; Other: Sven TECHNIQUE: Imaging protocol: Real-time ultrasound of the retroperitoneum with image documentation. Complete exam focused on the bilateral kidneys and urinary bladder. COMPARISON: [place] [id number] 04/23/2024 4:14 PM FINDINGS: Right kidney: The right kidney measures 12.6 x 7.7 x 6.9 cm. The right renal cortex measures 1.4 cm. Moderate right hydronephrosis with renal pelvis measuring 5.4 cm. Left kidney: Technically difficult study. Simple cyst in the interpolar region of the left kidney measuring 4.2 x 4 x 3.3 cm. The left kidney measures 11.1 x 7 x 5.6 cm. No left hydronephrosis. The left renal cortex measures 1.6 cm. Urinary bladder: Unremarkable. US/US renal BI* [id number] IMPRESSION: Moderate right hydronephrosis. No left hydronephrosis.
[2024-04-24] MEDS: insulin glargine 100 units/1 mL 50 UNIT SUBCUT ×2 (09:44→20:37)
--- NOTE | 2024-04-24 11:28 | PC.CHAP ---
Pastoral Care Encounter/Spiritual Assessment Type of Contact [] Declined merchandise flow team leader visit [] Patient/Family/Request visit [] Outpatient visit [] Follow-up visit [] Physician referral [] Code/Alert [] Routine visit [] Staff referral [] Actively dying [] Patient sleeping [] Family support [] [] Out of room [] Palliative care [] [] Receiving care in room [] Pre-surgical visit [] Trauma [] Long length of stay [] ICU visit [] Other:STOP Relational/Emotional Strength [] Patient feels connected with others/family/visitors/staff [] Distress [] Loneliness/isolation [] Abandonment Spirituality of Patient [] Person of Kerrie [] Attends Roman Catholic of their Kerrie [] Believes in Prayer [] Reads Bible or Roman Catholic materials [] There are Spiritual issues to be addressed Leather Grainer Interventions [] Prayer [] Active listening [] Non-anxious presence [] Spiritual/emotional support [] Crisis/trauma care [] Spiritual counseling [] Bereavement support [] Provided bereavement packet [] Provided Bible/devotional materials [] Provided toy/stuffed animal, coloring book to patient or family member [] Provided Communion [] Anointing/Daniel [] Salvation [] Completed spiritual assessment [] Other: Impact on Illness or Injury [] Angry [] Fearful [] Anxious [] Often cries [] Exhaustion [] Unable to work [] Unable to attend lutheran [] Unable to walk/stand [] Unable to read [] Unable to drive [] Unable to eat/drink [] Unable to sleep [] Unable to be with family [] Patient intubated [] Other: Summary Time spent with patient
--- NOTE | 2024-04-24 11:37 | PHA.VACGOAL ---
Vancomycin Goal - Goal Vancomycin Indication:: Other - Therapy Day of therpy:: Day []of [] . Actual body weight (kg): 357 lb 14.4 oz - Data Labs: WBC 7.24 10^3/uL (3.29-11.43) 04/24/24 03:33 RBC 4.83 10^6/uL (3.85-5.65) 04/24/24 03:33 Hgb 11.50 g/dL (11.27-16.99) 04/24/24 03:33 Hct 42.1 % (37-53) 04/24/24 03:33 MCV 87.2 fl (82-101) 04/24/24 03:33 MCH 23.8 pg (27-33) L 04/24/24 03:33 MCHC 27.3 g/dL (30-55) L D 04/24/24 03:33 RDW 17.1 % (12.1-15.1) H 04/24/24 03:33 Sodium 140 mmol/L (136-145) 04/24/24 03:33 Potassium 4.3 mmol/L (3.5-5.1) 04/24/24 03:33 Chloride 104 mmol/L (98-107) 04/24/24 03:33 Carbon Dioxide 23 mmol/L (22-29) 04/24/24 03:33 Anion Gap 17.3 (5-19) 04/24/24 03:33 BUN 38 mg/dL (8-23) H 04/24/24 03:33 Creatinine 3.1 mg/dL (0.7-1.2) H 04/24/24 03:33 GFR Calculation 20.3 mL/min (90-130) L 04/24/24 03:33 Treatment plan:: new consult Regimen:: PREVIOUS DOSE 1000 MG PER TELEPHARMACY; ADJUSTED TO OZ PROTOCOL 1500 MG Q24H EMPERIC; ENCEPHALOPATHY
[2024-04-24] MEDS: perflutren protein-a microsphr 0.22 mg/mL SDV 3 mL IV (12:03)
[2024-04-24 12:05] LABS: Glucose Point of Care 154 mg/dL (70-110)
[2024-04-24 12:08] LABS: ABG PCO2 56.7 mmHg (35-45); ABG PH Result 7.22 (7.35-7.45); Alveolar-Arterial Oxygen Gradi 16.9 mmHg (5-10); Arterial Blood Gas Hematocrit 35.2 % (42-52); Blood Gas Operator Identificat AMH; Blood Gas Sample Site Brachial, right; Blood Gas Sample Type Arterial; Carboxyhemoglobin 1.7 %THgb (0.4-20.1); HCO3 ABG 23.2 mmol/L (22-26); HGB O2 Sat 86.9 % (95-100); Ionized Calcium Level - ABG 1.2 mmol/L (1.1-1.4); Oxygen Device NC; Oxygen Saturation ABG 89.3; PO2 ABG 59.9 mmHg (80.0-100.0); PO2 FiO2 Ratio Arterial Blood 166; Potassium Level - ABG 4.1 mmol/L (3.5-5.0); Total Hemoglobin 11.5 g/dL (14-18)
--- NOTE | 2024-04-24 12:19 | XRR_ITS ---
PROCEDURE INFORMATION: Exam: XR Chest Exam date and time: 04/24/2024 5:11 PM Age: 68 years old Clinical indication: Shortness of breath; Additional info: Increased shortness of breath TECHNIQUE: Imaging protocol: Radiologic exam of the chest. Views: 1 view. COMPARISON: CT chest abdpel [id number] 04/23/2024 4:14 PM FINDINGS: Lungs: Bilateral lower lobe consolidation/collapse. Pleural spaces: Bilateral pleural effusions. Heart/Mediastinum: The heart is enlarged. Bones/joints: The thoracic spine demonstrates moderate degenerative changes at multiple levels. XR/XR chest 1V portable [id number] IMPRESSION: Increase in bilateral pleural effusions with lower lobe consolidation/collapse.
[2024-04-24] MEDS: insulin lispro 100 unit/1 mL SUBCUT (12:32)
[2024-04-24 14:26] LABS: Partial Thromboplastin Time 42.6 SECONDS (23.9-36.7)
--- NOTE | 2024-04-24 15:52 | USCV_ITS ---
Rob Fenton Age: 68 Gender: M : 1955 Exam Date: 04/24/2024 11:22 Ordering Phys: Kenneth Armendariz MD Technologist: Peterson Tejada [place] [facility] [place]: nstemi BP: 162 / 78 HR: 102 Rhythm: Sinus Technical Quality: Adequate MEASUREMENTS (Male / Female) Normal Values 2D ECHO LV Diastolic Diameter PLAX 4.7 cm 4.2 - 5.9 / 3.9 - 5.3 cm IVS Diastolic Thickness 1.9 cm 0.6 - 1.0 / 0.6 - 0.9 cm IVS Systolic Thickness 2.0 cm LVPW Diastolic Thickness 1.9 cm 0.6 - 1.0 / 0.6 - 0.9 cm LVPW Systolic Thickness 3.0 cm LVOT Diameter 2.2 cm LV Ejection Fraction 2D Teich 66.0 % LV Ejection Fraction MOD 4C 67.7 % LV Ejection Fraction MOD 2C 70.1 % LV Ejection Fraction 2C AL 69.5 % LA Diameter 4.1 cm RA Systolic Volume 4C AL 103.9 ml RA Systolic Volume 4C MOD 106.7 ml LA Sys Volume AL 90.2 cm cubed LA Sys Volume Index AL 31.1 cm cubed/m squared Aorta at Sinotubular Diameter 3.1 cm IVC Diameter 2.6 cm M-MODE LA Ao Ratio MM 1.4 AV Cusp Separation MM 1.1 cm DOPPLER AV Peak Velocity 249.0 cm/s LVOT Peak Velocity 119.0 cm/s AV Area Cont Eq vti 2.2 cm squared AV Area Cont Eq pk 1.9 cm squared MV Peak Velocity 139.0 cm/s MV Area PHT 5.5 cm squared Mitral E to A Ratio 0.9 TV Peak Velocity 364.0 cm/s TR Peak Velocity 440.0 cm/s TR Peak Gradient 77.4 mmHg TR Mean Velocity 359.0 cm/s TR Mean Gradient 54.2 mmHg TR Velocity Time Integral 113.3 cm PV Peak Velocity 119.0 cm/s RV Ejection Time 0.3 s FINDINGS Left Ventricle Technically limited quality echocardiogram because of poor ultrasonic windows. LV systolic function is normal with EF of 60-65%. No regional wall abnormalities. Right Ventricle Not well visualized Right Atrium Normal in size Left Atrium Normal in size Mitral Valve Mild to moderate mitral annular calcification. Aortic Valve Not well-visualized. Mild aortic stenosis with mean gradient of 15 mmHg. Tricuspid Valve Mild tricuspid regurgitation. RVSP is 50-55 mmHg. This is consistent with moderate pulmonary hypertension. Pulmonic Valve Not visualized Pericardium Not well visualized Aorta Not well visualized IVC Not well visualized CONCLUSIONS Technically very limited quality echocardiogram because of poor ultrasonic windows. LV systolic function is normal with EF of 60-65%. Mild aortic stenosis. Mild tricuspid regurgitation. Moderate pulmonary hypertension Valves are not well visualized. No comparison studies are available. Elio Wang MD (Electronically Signed) Final Date: 24 April 2024 13:12 S
[2024-04-24 17:02] LABS: Glucose Point of Care 132 mg/dL (70-110)
--- NOTE | 2024-04-24 17:05 | P.PN_ITS ---
Subjective 2 Subjective: Patient was seen this morning he is alert to person, to place and not to time he reports fatigue malaise cough, reports shortness of breath, in addition family meeting this afternoon with patient's over the phone, discussed care in detail, will continue to monitor closely iscussed pneumonia, respiratory failure CHF, encephalopathy Vitals/I&O/Wt Last Vital Signs Temp 99.0 F 04/24/24 12:00 Pulse 101 H 04/24/24 12:00 Resp 18 04/24/24 12:00 BP 166/72 04/24/24 12:00 Pulse Ox 90 04/24/24 12:08 O2 Del Method Nasal Cannula 04/24/24 12:08 O2 Flow Rate 5 04/24/24 12:08 04/24/24 04/24/24 04/24/24 06:59 14:59 22:59 Intake Total 428.6 / 491.100 290 / 290 0 / 290 Output Total 1350 / 2000 Balance -921.4 / -1508.900 290 / 290 0 / 290 Weight last 48 hrs Weight 162.341 kg Weight 158.445 kg Physical Exam 2 Const: COMMON NORMALS: no acute distress ORIENTATION/CONSCIOUSNESS: Yes awake, Yes oriented to person, Yes oriented to place and Yes confused; not oriented to time Resp: COMMON NORMALS: normal respiratory effort, No retractions and No use of accessory muscles AUSCULTATION: crackles and wheezes Cardio: COMMON NORMALS: regular rate, regular rhythm, S1 normal heart sound present and S2 normal heart sound present RATE: regular rate RHYTHM: r egular rhythm HEART SOUNDS: S1 normal heart sound present and S2 normal heart sound present GI: COMMON NORMALS: Normal to inspection, nondistended, normoactive bowel sounds present and non-tender Extremity: COMMON NORMALS: no pedal edema Neuro: SENSORIUM/ORIENTATION: Yes oriented to person, Yes oriented to place and No oriented to time Urinary Catheter Management: Craevn: Cath Placed During This Visit: yes Reason for Continuing Indwelling Catheter: Acute Urinary Retention or Obstruction Urinary Catheter Date of Insertion: 04/23/24 Urinary Catheter Time of Insertion: 20:06 Data 04/24/24 03:33 04/24/24 03:33 Micro: Microbiology 04/23/24 15:02 Urine Culture - Preliminary Urine Catheterized 04/23/24 19:19 Blood Culture - Preliminary Blood SPECIMEN COLLECTED 04/23/24 19:19 Blood Culture - Preliminary Blood SPECIMEN COLLECTED A&P Assessment and plan (1) Nausea & vomiting: (2) Chronic kidney disease: (3) History of nonmelanoma skin cancer: (4) Immunosuppression: (5) Weakness: (6) Respiratory syncytial virus: (7) Increased anion gap metabolic acidosis: (8) NSTEMI (non-ST elevated myocardial infarction): (9) Fever: (10) Acute encephalopathy: (11) Acute hypoxic respiratory failure: (12) Congestive heart failure: (13) Pneumonia: Plan Acute encephalopathy -Likely secondary to RSV -Pneumonia -Blood cultures -Neurochecks, and a stroke scale - broad-spectrum antibiotic therapy vancomycin, Zosyn -CT head no acute findings -Monitor mentation closely Bacterial pneumonia CT imaging 2. Focal nodular opacities and ground-glass in both upper lobes, possibly reflecting alveolar edema or developing infection. Metastatic disease would be difficult to exclude given history of primary malignancy. Consider follow-up CT of the chest in 4-6 weeks to assess for resolution. If persistent, PET-CT may be helpful. -Continue vancomycin, Zosyn -Follow blood cultures -Monitor respiratory status -Aspiration precautions -Dysphagia level 6 diet mildly thickened Fevers -Likely sec to RSV -With pneumonia -However does have immunocompromise state with history of melanoma -Does have an area of cellulitis on the back measuring 5 x 5 cm w -Follow blood cultures NSTEMI -No chest pain complaints -History of CAD -aspirin, statin, beta shaquille -Cardiac echo CONCLUSIONS Technically very limited quality echocardiogram because of poor ultrasonic windows. LV systolic function is normal with EF of 60-65%. Mild aortic stenosis. Mild tricuspid regurgitation. Moderate pulmonary hypertension Valves are not well visualized. No comparison studies are available. -Serial EKGs, serial troponins, telemetry monitoring- -heparin drip for 48 hours -Venous ultrasound for DVT Lower extremity KETTY, venous ultrasound negative for DVT Complaints of shortness of breath -Like diastolic CHF exacerbation, RSV, pneumonia -Acute hypoxic respiratory failure Plan -Lasix 40 IV twice daily -Monitor respiratory status closely Type 2 diabetes mellitus -Takes Tresiba 100 units twice daily, NovoLog sliding scale -Decrease Lantus 50 units twice daily, NovoLog sliding scale -Cardiac diet Nausea and vomiting, CT abdomen no acute findings RAYMOND on CKD, monitor -History of preparation for end-stage renal disease, as a dialysis fistula in place, has not been used as of yet Moderate right hydronephrosis, no kidney stone seen -Patient's tells me that this is chronic -Will monitor Full code Heparin drip for DVT prophylaxis Attestations 2 Medical Necessity Statement*: Patient requires hospitalization for acute hypoxic respiratory failure, bacterial pneumonia, fevers, encephalopathy, NSTEMI, Diagnoses Nausea & vomiting R11.2 Chronic kidney disease N18.9 History of nonmelanoma skin cancer Z85.828 Immunosuppression D84.9 Weakness R53.1 Respiratory syncytial virus B33.8 Increased anion gap metabolic acidosis E87.29 NSTEMI (non-ST elevated myocardial infarction) I21.4 Fever R50.9 Acute encephalopathy G93.40 Acute hypoxic respiratory failure J96.01 Congestive heart failure I50.9 Pneumonia J18.9
[2024-04-24] MEDS: vancomycin 1,500 MG/300 ML PIGGYBACK 200 MG IV (17:42)
[2024-04-24] MEDS: atorvastatin 40 mg Tablet PO (17:43)
--- NOTE | 2024-04-24 19:43 | PC.NURSE ---
Nurse notified lab three separate times about a timed PTT that should have been drawn at 1100 per cnc machinist 2nd shift doctor's orders. PTT was not drawn until 1330 and did not result until 1430. Day shift doctor was notified and instructed me to decrease heparin by 1 unit/kg/hr. Heparin was paused at 1900 to recheck PTT.
[2024-04-24 20:22] LABS: Glucose Point of Care 132 mg/dL (70-110)
[2024-04-24 20:27] LABS: ABG PH Result 7.19 (7.35-7.45); Arterial Blood Gas Hematocrit 39.9 % (42-52); Blood Gas Allen Test Pos; Blood Gas Operator Identificat SAM; Blood Gas Sample Site Brachial, right; Blood Gas Sample Type Arterial; Carboxyhemoglobin 1.7 %THgb (0.4-20.1); HGB O2 Sat 94.1 % (95-100); Ionized Calcium Level - ABG 1.3 mmol/L (1.1-1.4); Methemoglobin 0.1 % (0.4-1.5); Oxygen Device BIPAP; Oxygen Saturation ABG 95.8; PO2 ABG 79.8 mmHg (80.0-100.0); Potassium Level - ABG 4.5 mmol/L (3.5-5.0)
[2024-04-24 20:30] LABS: ABG PCO2 60.2 mmHg (35-45)
[2024-04-24 20:57] LABS: Partial Thromboplastin Time 103.1 SECONDS (23.9-36.7)
--- NOTE | 2024-04-24 21:05 | PC.RESP ---
RT was called to Patient room for hard to arouse patient. Placed Patient on his home BIPAP with 10 lpm bled in. After running the ABG RT went back to room and saw the BIPAP off with error message about the motor exceeded. Turned machine back on and it shut off again. Placed pt on 6 lpm NC and transferring to ICU5. Floor RN, ICU RT and Dr Lester auguste.
--- NOTE | 2024-04-24 22:33 | PC.NURSE ---
At approximately [address] Batista of tachypnia, and overall status. CBG checked and was 132. B/p 168/59 HR 79 R 29 O2 94% w/ 6 l/m via n/c T 98.[address] Batista ordered a stat ABG. RT notified of stat order. This nurse was informed at that time that his home bipap device was not functioning and needed HOME needed to be called. Deborah tile layer supervisor notified and called Dr. Batista to physicially come assess the pt. Physician put in transfer orders to transfer pt to ICU @ approximately 2014. Received ICU room assignment ICU 5. While getting pt ready and administering medications report was called to WEED SCIENCE RESEARCH TECHNICIAN Britt @ approximately 2048. Pt was transported to ICU @ approximately 2109. Attempted to call pt's at 2118 and was unable to reach her with the numbers listed in the chart. Will reattempt at a later time.
--- NOTE | 2024-04-24 22:43 | PC.NURSE ---
Was able to reach and notified her that her was transferred to the icu. Pt's stated she will be on her way to the hospital.
--- NOTE | 2024-04-24 22:44 | PC.NURSE ---
Srinath in ICU was notified that this nurse was able to get ahold of the pt's , and that she was on her way to the hospital.
[2024-04-24 23:59] LABS: ABG PCO2 56.5 mmHg (35-45); ABG PH Result 7.21 (7.35-7.45); Arterial Blood Gas Hematocrit 32.5 % (42-52); Base Excess ABG -5.4 mmol/L (-2.0-2.0); Blood Gas Allen Test Pos; Blood Gas Operator Identificat JDB; Blood Gas Sample Site Radial, right; Blood Gas Sample Type Arterial; HCO3 ABG 22.8 mmol/L (22-26); Oxygen Device BIPAP
[2024-04-25] VITALS (49 sets, daily range): BP systolic 103–184; BP diastolic 35–119; PULSE 56–81; RESP 9–29; TEMP 37.1–39.7; O2SAT 87–100; BMI 52.4
[2024-04-25] MEDS: heparin drip 25,000 UNIT/500 ML PREMIX 38 UNIT IV (00:26)
[2024-04-25 00:39] LABS: Glucose Point of Care 122 mg/dL (70-110)
[2024-04-25] MEDS: morphine 4 mg/mL SDV 1 mL 2 MG IVP (03:25)
[2024-04-25] MEDS: piperacillin-tazobactam 3.375 GM in sodium chloride 0.9% (plus) 50 ML IV ×3 (03:26→21:23)
[2024-04-25 03:49] LABS: Basophils # 0.1 10^3/uL (0.0-0.1); Basophils % 0.9 %; Eosinophils # 0.3 10^3/uL (0.0-0.8); Eosinophils % 3.6 %; Lymphocytes # 1.1 10^3/uL (0.8-4.8); Lymphocytes % 13.2 %; Mean Corpuscular HGB Conc 26.7 g/dL (30-55); Mean Corpuscular Hemoglobin 23.7 pg (27-33); Mean Platelet Volume 9.3 fL (7.4-10.4); Monocytes # 0.6 10^3/uL (0.2-0.9); Monocytes % 7.3 %; Neutrophils # 6.46 10^3/uL (1.8-7.7); Neutrophils % 74.5 %; Nucleated Red Blood Cells % 0 %; Platelet Count 312 10^3/cmm (157-399); Red Blood Count 4.38 10^6/uL (3.85-5.65); Red Cell Distribution Width 17.2 % (12.1-15.1); White Blood Count 8.66 10^3/uL (3.29-11.43)
[2024-04-25 04:58] LABS: Alanine Aminotransferase < 5 U/L (0-41); Albumin Level 3.1 g/dL (3.5-5.2); Alkaline Phosphatase 169 U/L (40-130); Anion Gap 19.8 (5-19); Aspartate Amino Transferase 9 U/L (0-40); Blood Urea Nitrogen 41 mg/dL (8-23); Calcium 8.5 mg/dL (8.5-10.5); Carbon Dioxide 22 mmol/L (22-29); Chloride 105 mmol/L (98-107); Creatinine Clr Calc Pharmacy 29.8212; Globulin 2.6 g/dL (1.3-4.6); Glomerular Filtration Rate 16.5 mL/min (90-130); Glucose 115 mg/dL (65-115); Magnesium 2.1 mg/dL (1.7-2.3); NT Pro B Type Natriuretic Pept 12865 pg/mL (0-125); Osmolality Calculated 305 mOsm/kg (285-295); Phosphorus 4.5 mg/dL (2.5-4.5); Potassium 4.8 mmol/L (3.5-5.1); Sodium 142 mmol/L (136-145); Total Bilirubin 1.1 mg/dL (0.15-1.2); Total Protein 5.7 g/dL (6.6-8.7)
[2024-04-25] MEDS: pantoprazole 40 mg SDV IVP ×2 (08:16→19:30)
[2024-04-25] MEDS: FUROsemide 10 mg/mL SDV 4mL 40 MG IVP ×2 (08:16→19:30)
[2024-04-25 08:26] LABS: Glucose Point of Care 90 mg/dL (70-110)
[2024-04-25 09:11] LABS: ABG PCO2 49.5 mmHg (35-45); ABG PH Result 7.27 (7.35-7.45); Arterial Blood Gas Hematocrit 33.1 % (42-52); Base Excess ABG -4.5 mmol/L (-2.0-2.0); Blood Gas Allen Test Pos; Blood Gas Operator Identificat GD; Blood Gas Sample Site Radial, right; Blood Gas Sample Type Arterial; HCO3 ABG 22.5 mmol/L (22-26); Oxygen Device BIPAP; PO2 ABG 71.7 mmHg (80.0-100.0)
[2024-04-25] MEDS: methylPREDNISolone sod succ 125 mg/2 mL INJ IVP (10:09)
[2024-04-25] MEDS: AZITHROMYCIN ADD-Vantage 500 MG in 0.9% NaCl ADD-Vantage 250 ML 250 MG IV (10:09)
[2024-04-25 11:15] LABS: Glucose Point of Care 104 mg/dL (70-110)
[2024-04-25 11:30] LABS: Erythrocyte Sedimentation Rate 90 mm/hr (0-10)
[2024-04-25 11:44] LABS: C Reactive Protein 161.2 mg/L (0.0-4.9)
[2024-04-25 11:45] LABS: Lactate Dehydrogenase 148 U/L (135-225); Lactic Sepsis W/Reflex 1.1 mmol/L (0.5-2.2)
[2024-04-25 11:46] LABS: Partial Thromboplastin Time 82.5 SECONDS (23.9-36.7)
[2024-04-25] MEDS: dexmedeTOMIDine 0.9 % NaCL 400 MCG/100 ML PREMIX IV ×3 (11:47→19:34)
[2024-04-25 11:52] LABS: Procalcitonin 0.61 ng/mL (0-0.5)
[2024-04-25 13:10] LABS: Adenovirus Not Detected (NOT DETECT); Chlamydia Pneumoniae Not Detected (NOT DETECT); Coronavirus 229E,HKU1,NL63,OC4 Not Detected (NOT DETECT); Human Metapneumovirus Not Detected (NOT DETECT); Human Rhinovirus/Enterovirus Not Detected (NOT DETECT); Influenza A Not Detected (NOT DETECT); Influenza A H1 Not Detected (NOT DETECT); Influenza A H1-2009 Not Detected (NOT DETECT); Influenza A H3 Not Detected (NOT DETECT); Influenza B Not Detected (NOT DETECT); Mycoplasma Pneumoniae Not Detected (NOT DETECT); Parainfluenza Virus Type 1 Not Detected (NOT DETECT); Parainfluenza Virus Type 2 Not Detected (NOT DETECT); Parainfluenza Virus Type 3 Not Detected (NOT DETECT); Parainfluenza Virus Type 4 Not Detected (NOT DETECT); Respiratory Syncytial Virus A Not Detected (NOT DETECT); SARS-COV-2 Not Detected (NOT DETECT)
[2024-04-25] MEDS: acyclovir 1,000 MG in sodium chloride 0.9% 250 ML 270 MG IV (13:13)
[2024-04-25 13:19] LABS: Respiratory Syncytial Virus B Detected (NOT DETECT)
--- NOTE | 2024-04-25 13:23 | P.PN_ITS ---
Subjective 2 Subjective: Patient was seen this morning, he is alert to person, not to place, time continues to be on his CPAP mask, does have episodes of confusion tries to take off his mask, overnight events noted, Vitals/I&O/Wt Last Vital Signs Temp 100.7 F H 04/25/24 04:00 Pulse 76 04/25/24 10:04 Resp 19 H 04/25/24 09:03 BP 149/75 04/25/24 06:00 Pulse Ox 96 04/25/24 10:04 O2 Del Method CPAP 04/25/24 09:03 O2 Flow Rate 8 04/25/24 10:04 04/24/24 04/25/24 04/25/24 22:59 06:59 14:59 Intake Total 751.6 / 1041.6 370.2 / 1411.8 50 / 50 Output Total 200 / 200 725 / 925 Balance 551.6 / 841.6 -354.8 / 486.8 50 / 50 Weight last 48 hrs Weight 161 kg Weight 162.341 kg Weight 158.445 kg Physical Exam 2 Const: COMMON NORMALS: no acute distress ORIENTATION/CONSCIOUSNESS: Yes awake, Yes oriented to person and Yes confused; not oriented to place and not oriented to time Eye: COMMON NORMALS: Equal, round and reactive pupils present PUPIL: Yes Equal, round and reactive pupils present Neck/C-Spine: COMMON NORMALS: full ROM and no lymphadenopathy OTHER: Negative, Bruschi sign negative Resp: COMMON NORMALS: normal respiratory effort, No retractions and No use of accessory muscles AUSCULTATION: crackles and wheezes Cardio: COMMON NORMALS: regular rate, regular rhythm, S1 normal heart sound present and S2 normal heart sound present RATE: regular rate RHYTHM: r egular rhythm HEART SOUNDS: S1 normal heart sound present and S2 normal heart sound present GI: COMMON NORMALS: Normal to inspection, nondistended, normoactive bowel sounds present and non-tender OTHER: Morbidly obese abdomen Extremity: COMMON NORMALS: no pedal edema Neuro: SENSORIUM/ORIENTATION: Yes oriented to person, No oriented to place and No oriented to time Skin: NARRATIVE SKIN EXAM: Anterior chest, has a pustular lesion multiple with multiple satellite lesions, draining purulent Urinary Catheter Management: Craven: Cath Placed During This Visit: yes Reason for Continuing Indwelling Catheter: Accurate Measurement of Urinary Output in Critically Ill Patients Urinary Catheter Date of Insertion: 04/23/24 Urinary Catheter Time of Insertion: 20:06 Data 04/25/24 02:17 04/25/24 03:25 Micro: Microbiology 04/23/24 15:02 Urine Culture - Final Urine Catheterized 04/25/24 11:16 Blood Culture - Preliminary Blood SPECIMEN COLLECTED 04/25/24 11:14 Blood Culture - Preliminary Blood SPECIMEN COLLECTED 04/23/24 19:19 Blood Culture - Preliminary Blood NEGATIVE TO DATE 04/23/24 19:19 Blood Culture - Preliminary Blood NEGATIVE TO DATE A&P Assessment and plan (1) Nausea & vomiting: (2) Chronic kidney disease: (3) History of nonmelanoma skin cancer: (4) Immunosuppression: (5) Weakness: (6) Respiratory syncytial virus: (7) Increased anion gap metabolic acidosis: (8) NSTEMI (non-ST elevated myocardial infarction): (9) Fever: (10) Acute encephalopathy: (11) Acute hypoxic respiratory failure: (12) Congestive heart failure: (13) Pneumonia: (14) Shingles: (15) Viral meningitis: Plan Acute encephalopathy -Likely secondary to RSV -Pneumonia -Blood cultures -Repeat blood cultures -Due to fevers and encephalopathy overnight, repeat blood cultures, viral studies ordered, HSV, VZV, beta 1-3 glucan, LDH, repeat CRP, Pro-Chencho, sed rate 90 -Concerns for possible viral meningitis will consider lumbar puncture based on clinical progress, with shingles rash, started on IV acyclovir -Will consider MRI based on clinical progress -Neurochecks, and a stroke scale - broad-spectrum antibiotic therapy vancomycin, Zosyn, azithromycin added -CT head no acute findings -Monitor mentation closely Shingles-like rash on chest -On contact precautions -Started on IV acyclovir Bacterial pneumonia CT imaging 2. Focal nodular opacities and ground-glass in both upper lobes, possibly reflecting alveolar edema or developing infection. Metastatic disease would be difficult to exclude given history of primary malignancy. Consider follow-up CT of the chest in 4-6 weeks to assess for resolution. If persistent, PET-CT may be helpful. -Continue vancomycin, Zosyn -Follow blood cultures -Monitor respiratory status -Aspiration precautions -Dysphagia level 6 diet mildly thickened Acute hypoxic hypercarbic respiratory failure -Likely component related to CO2 retention, CHF, obesity hypoventilation syndrome -Patient's family has declined using her BiPAP Plan -Patient's home machine for now as he is using his CPAP mask, but if respiratory status worsens will likely need our BiPAP -Monitor respiratory status closely -Albuterol -Lasix -1 dose IV steroids today Fevers -Likely sec to RSV -With pneumonia -Concerns for possible viral meningitis? -However does have immunocompromise state with history of melanoma -Does have an area of cellulitis on the back measuring 5 x 5 cm, monitor -Follow blood cultures -Repeated blood cultures, respiratory viral panel NSTEMI -No chest pain complaints -History of CAD -aspirin, statin, beta shaquille -Cardiac echo CONCLUSIONS Technically very limited quality echocardiogram because of poor ultrasonic windows. LV systolic function is normal with EF of 60-65%. Mild aortic stenosis. Mild tricuspid regurgitation. Moderate pulmonary hypertension Valves are not well visualized. No comparison studies are available. -Serial EKGs, serial troponins, telemetry monitoring- -heparin drip for 48 hours completed, will switch to DVT prophylaxis Lovenox -Venous ultrasound for DVT Lower extremity KETTY, venous ultrasound negative for DVT Complaints of shortness of breath -Like diastolic CHF exacerbation, RSV, pneumonia -Acute hypoxic respiratory failure Plan -Lasix 40 IV twice daily -Monitor respiratory status closely Type 2 diabetes mellitus -Takes Tresiba 100 units twice daily, NovoLog sliding scale -Decrease Lantus 50 units twice daily, NovoLog sliding scale -Cardiac diet Nausea and vomiting, CT abdomen no acute findings RAYMOND on CKD, monitor -History of preparation for end-stage renal disease, as a dialysis fistula in place, has not been used as of yet Moderate right hydronephrosis, no kidney stone seen -Patient's tells me that this is chronic -Will monitor Morbid obesity Agitation, placed on Precedex drip Full code Heparin drip for DVT prophylaxis Attestations 2 Medical Necessity Statement*: Patient requires hospitalization for acute encephalopathy, acute respiratory failure, pneumonia, persistent fevers, RSV Diagnoses Nausea & vomiting R11.2 Chronic kidney disease N18.9 History of nonmelanoma skin cancer Z85.828 Immunosuppression D84.9 Weakness R53.1 Respiratory syncytial virus B33.8 Increased anion gap metabolic acidosis E87.29 NSTEMI (non-ST elevated myocardial infarction) I21.4 Fever R50.9 Acute encephalopathy G93.40 Acute hypoxic respiratory failure J96.01 Congestive heart failure I50.9 Pneumonia J18.9 Shingles B02.9 Viral meningitis A87.9
[2024-04-25 17:36] LABS: Vancomycin Trough 14.3 ug/mL (10-15)
[2024-04-25 18:34] LABS: Glucose Point of Care 152 mg/dL (70-110)
[2024-04-25] MEDS: insulin lispro 100 unit/1 mL SUBCUT ×2 (19:28→21:28)
[2024-04-25] MEDS: vancomycin 1,500 MG/300 ML PIGGYBACK 200 MG IV (19:29)
[2024-04-25 21:03] LABS: Glucose Point of Care 146 mg/dL (70-110)
--- NOTE | 2024-04-25 21:11 | PC.NURSE ---
Precedex running at 0.7 when nurse assumed care. Titration to 0.6 was a decrease from 0.7, NOT an increase from 0.1.
[2024-04-25] MEDS: heparin 5,000 unit/mL INJ 1 mL 5000 UNIT SUBCUT (21:27)
[2024-04-25] MEDS: insulin glargine 100 units/1 mL 50 UNIT SUBCUT (21:27)
[2024-04-25] MEDS: dexmedeTOMIDine 0.9 % NaCL 400 MCG/100 ML PREMIX 20.13 MCG IV (23:07)
[2024-04-26] VITALS (52 sets, daily range): BP systolic 130–193; BP diastolic 61–148; PULSE 49–96; RESP 15–34; TEMP 36.1–37.1; O2SAT 90–98
[2024-04-26] MEDS: acyclovir 1,000 MG in sodium chloride 0.9% 250 ML 270 MG IV (02:04)
[2024-04-26 03:55] LABS: Glucose Point of Care 166 mg/dL (70-110)
[2024-04-26 04:04] LABS: ABG PCO2 44.6 mmHg (35-45); ABG PH Result 7.26 (7.35-7.45); Arterial Blood Gas Hematocrit 35.1 % (42-52); Blood Gas Allen Test Pos; Blood Gas Operator Identificat SAM; Blood Gas Sample Site Radial, right; Blood Gas Sample Type Arterial; HCO3 ABG 19.9 mmol/L (22-26); Oxygen Device BIPAP; PO2 ABG 86.3 mmHg (80.0-100.0)
--- NOTE | 2024-04-26 04:25 | CTR_ITS ---
PROCEDURE INFORMATION: Exam: CT Head Without Contrast Exam date and time: 04/26/2024 4:45 AM Age: 68 years old Clinical indication: Altered mental status/memory loss; Confusion or disorientation; Sudden onset of confusion and unresponsiveness. ; Additional info: Mental status change TECHNIQUE: Imaging protocol: Computed tomography of the head without contrast. Radiation optimization: All CT scans at this facility use at least one of these dose optimization techniques: automated exposure control; mA and/or kV adjustment per patient size (includes targeted exams where dose is matched to clinical indication); or iterative reconstruction. COMPARISON: CT head wo con* [id number] 23/04/2024 16:11 RADIATION DOSE METRICS: Total DLP (mGy-cm): 1187.07 FINDINGS: Brain: No hemorrhage, mass effect or midline shift. No acute, major vascular distribution infarction identified. There are foci of decreased attenuation in the periventricular and subcortical white matter, likely representing chronic small vessel ischemic changes. Mild cerebral volume loss is present. No intra-axial or extra-axial fluid collection seen. Cerebral ventricles: No ventriculomegaly. Paranasal sinuses: There is mucosal thickening of the maxillary sinus ethmoid air cells and sphenoid sinus on the left. Mastoid air cells: Visualized mastoid air cells are well aerated. Orbital cavities: Bilateral lens replacement noted. Bones: Unremarkable. No acute fracture. Soft tissues: Unremarkable. CT/CT head wo con* [id number] IMPRESSION: 1. No acute intracranial abnormality. 2. Mild sinus inflammatory changes.
[2024-04-26] MEDS: hyDRALAzine 20 mg/mL INJ 1 mL 10 MG IVP ×3 (04:36→22:08)
--- NOTE | 2024-04-26 05:06 | PC.NURSE ---
03:30 - Contacted Dr. Batista in reference to patient's change of mentation. Received orders for ABG stat. 04:00 - After results of ABG, Dr. Batista ordered stat head CT w/o contrast. Also ordered Hydralazine 10mg IVP Q4H for greater than 180/110 BP.
[2024-04-26] MEDS: piperacillin-tazobactam 3.375 GM in sodium chloride 0.9% (plus) 50 ML IV ×3 (05:26→18:22)
[2024-04-26 05:35] LABS: Basophils % 0.6 %; Lymphocytes # 0.7 10^3/uL (0.8-4.8); Lymphocytes % 11.3 %; Mean Corpuscular HGB Conc 27.9 g/dL (30-55); Mean Corpuscular Hemoglobin 23.6 pg (27-33); Mean Corpuscular Volume 84.6 fl (82-101); Mean Platelet Volume 9.2 fL (7.4-10.4); Monocytes # 0.1 10^3/uL (0.2-0.9); Monocytes % 1.1 %; Neutrophils # 5.32 10^3/uL (1.8-7.7); Neutrophils % 86.4 %; Nucleated Red Blood Cells % 0 %; Platelet Count 315 10^3/cmm (157-399); Red Blood Count 4.61 10^6/uL (3.85-5.65); Red Cell Distribution Width 17.3 % (12.1-15.1); White Blood Count 6.17 10^3/uL (3.29-11.43)
[2024-04-26 05:52] LABS: Lactate (Lactic Acid level) 1.6 mmol/L (0.5-2.2)
[2024-04-26 05:58] LABS: C Reactive Protein 154.7 mg/L (0.0-4.9); NT Pro B Type Natriuretic Pept 7627 pg/mL (0-125); Procalcitonin 0.76 ng/mL (0-0.5)
[2024-04-26 06:05] LABS: Erythrocyte Sedimentation Rate 108 mm/hr (0-10)
[2024-04-26 06:09] LABS: Alanine Aminotransferase 6 U/L (0-41); Albumin Level 3.1 g/dL (3.5-5.2); Alkaline Phosphatase 135 U/L (40-130); Anion Gap 26.8 (5-19); Aspartate Amino Transferase 25 U/L (0-40); Blood Urea Nitrogen 60 mg/dL (8-23); Calcium 9.1 mg/dL (8.5-10.5); Carbon Dioxide 17 mmol/L (22-29); Chloride 104 mmol/L (98-107); Creatinine Clr Calc Pharmacy 25.5319; Globulin 3.5 g/dL (1.3-4.6); Glomerular Filtration Rate 13.9 mL/min (90-130); Glucose 199 mg/dL (65-115); Magnesium 2.2 mg/dL (1.7-2.3); Osmolality Calculated 318 mOsm/kg (285-295); Potassium 4.8 mmol/L (3.5-5.1); Sodium 143 mmol/L (136-145); Total Protein 6.6 g/dL (6.6-8.7)
[2024-04-26] MEDS: pantoprazole 40 mg SDV IVP ×2 (06:42→18:21)
[2024-04-26] MEDS: FUROsemide 10 mg/mL SDV 4mL 40 MG IVP (06:42)
--- NOTE | 2024-04-26 08:17 | MR_ITS ---
WS: [id number] MRI HEAD WITHOUT CONTRAST TECHNIQUE: Sagittal T1, T2 axial, T2 axial FLAIR, axial and coronal T1 images, axial susceptibility w eighted imaging, axial diffusion weighted images, and coronal T2 images were obtained. CLINICAL INFORMATION: ams COMPARISON: CT 04/26/2024 FINDINGS: No evidence of restricted diffusion to suggest acute ischemia. Ventricular system and basal cisterns are patent. Mild small vessel changes. Moderate parenchymal volume loss. Normal vascular flow voids a t the skull base. No extra-axial fluid collections. No mass or mass effect. Mild mucosal thickening i n the paranasal sinuses. Mild mucosal thickening in the mastoid air cells. Normal posterior nasophary nx. No hemosiderin on susceptibility-weighted images. A few tiny chronic foci of hemosiderin in the LEFT basal ganglia and periventricular white matter. Normal optic chiasm and pituitary infundibulum. Moderate symmetric atrophy temporal lobes and hippoca mpal formations. MR/MR head wo con* [id number] IMPRESSION: 1. No evidence of restricted diffusion to suggest acute ischemia. 2. Mild small vessel changes with moderate parenchymal volume loss. 3. Moderate symmetric atrophy temporal lobes and hippocampal formations. 4. Mild mucosal thickening paranasal sinuses and mastoid air cells. 5. No other acute findings.
--- NOTE | 2024-04-26 08:17 | FL_ITS ---
WS: [id number] LUMBAR PUNCTURE CLINICAL INFORMATION: ams TECHNIQUE: Informed consent: The procedure and its potential risk and complications were discussed with the larisa ent. Verbal and written consent was obtained. Timeout: A timeout was performed to confirm correct patient, procedure, and site. Patient was prepped and draped in the usual sterile fashion. Lidocaine 1% was used for local anesthes ia. Utilizing fluoroscopic guidance, a 3.5 inch 22-gauge spinal needle was advanced into the subarach noid space at L3-L4 via LEFT oblique sublaminar approach. Free flow of CSF was obtained. Small amount of blood in the needle hub which cleared with drainage. 15 cc of CSF was collected and sent the lab for further analysis. FLUOROSCOPIC TIME: 2min [id number] # of spot films: 1 FL/FL guided lumbarpunc dx* [id number] IMPRESSION: Fluoroscopically guided lumbar puncture. No immediate complications
[2024-04-26 08:57] LABS: Glucose Point of Care 219 mg/dL (70-110)
[2024-04-26] MEDS: AZITHROMYCIN ADD-Vantage 500 MG in 0.9% NaCl ADD-Vantage 250 ML 250 MG IV (09:12)
[2024-04-26] MEDS: insulin lispro 100 unit/1 mL SUBCUT ×4 (09:12→22:07)
[2024-04-26] MEDS: heparin 5,000 unit/mL INJ 1 mL 5000 UNIT SUBCUT (09:13)
--- NOTE | 2024-04-26 10:26 | PM.CONSULT ---
Providers/Reason For Consult Consulting Physician/Specialty*: Kuldeep Alejandro MD neurology and epilepsy Reason for Consult*: Encephalopathy Attending Physician: Kenneth Armendariz MD Primary Care Provider: Antionette Saavedra MD History of Present Illness History of Present Illness Rob Fenton is a 68 year old male with a history of chronic obstructive pulmonary disease obesity and nonmelanoma skin cancer and history of malignant melanoma. Patient admitted with respiratory syncytial virus. The patient was reported to have decreased level consciousness/altered mental status with clinical findings suggestive of encephalopathy. Noncontrast head CT was obtained reported to be negative. Blood and urine cultures reported to be negative. In view of the patient's encephalopathic picture a neurology consult was obtained. The attending reported patient has been scheduled for head MRI as well as lumbar puncture under fluoroscopy by radiology. Drug allergies: None Home medications: Allopurinol 100 mg p.o. daily Aspirin 81 mg p.o. daily Lipitor 40 mg p.o. daily Simbrinza 1 drop twice a day to eyes Diltiazem 120 mg p.o. q. Lasix 40 mg p.o. twice daily Hydrochlorothiazide 25 mg p.o. daily Insulin 100 units subcutaneous twice daily Lisinopril 40 mg p.o. daily Zofran 4 mg p.o. every 6 hours as needed for nausea vomit Potassium chloride 20 mill equivalents p.o. twice daily Past medical history: Chronic obstructive pulmonary disease Obesity Nonmelanoma skin cancer History of malignant melanoma Respiratory syncytial virus Habits: Unknown Family history: Unknown Social history: The ICU nurse caring for the patient reported patient lives with his Review of Systems General: Reports: ROS unobtainable due to medical condition Medications/Allergies Home Medications Medication Instructions Recorded Confirmed Last Taken Type aspirin 81 mg tablet,delayed 81 mg PO DAILY 01/02/21 04/23/24 Unknown History release (Adult Low Dose Aspirin) hydrochlorothiazide 25 mg tablet 25 mg PO DAILY 01/02/21 04/23/24 Unknown History allopurinol 100 mg tablet 100 mg PO DAILY 01/03/22 04/23/24 Unknown History atorvastatin 40 mg tablet 40 mg PO QPM 04/23/24 04/23/24 Unknown History brinzolamide 1 %-brimonidine 0.2 % 1 drp ophthalmic (eye) BID 04/23/24 04/23/24 Unknown History eye drops,suspension (Simbrinza) diltiazem HCl 120 mg 120 mg PO DAILY 04/23/24 04/23/24 Unknown History capsule,extended release 24 hr furosemide 40 mg tablet 40 mg PO BID 04/23/24 04/23/24 Unknown History insulin degludec 200 unit/mL (3 100 unit SUBCUT BID 04/23/24 04/23/24 Unknown History mL) subcutaneous pen (Tresiba FlexTouch U-200 insulin) insulin lispro 100 unit/mL 50 unit SUBCUT .WITH MEALS 04/23/24 04/23/24 Unknown History subcutaneous pen (Humalog KwikPen (U-100) Insulin) lisinopril 40 mg tablet 40 mg PO DAILY 04/23/24 04/23/24 Unknown History ondansetron HCl 4 mg tablet 4 mg PO Q6H PRN Nausea And Vomiting 04/23/24 04/23/24 Unknown History potassium chloride 10 mEq 20 meq PO BID 04/23/24 04/23/24 Unknown History tablet,extended release Allergies Allergy/AdvReac Type Severity Reaction Status Date / Time No Known Allergies Allergy Verified 04/09/22 15:36 Current Medications Generic Name Dose Route Start Last Admin Trade Name Freq PRN Reason Stop Dose Admin Allopurinol 100 mg 04/24/24 09:00 04/26/24 09:01 Allopurinol 100 Mg Tablet PO Not Given DAILY [facility] Aspirin 81 mg 04/23/24 19:19 04/26/24 09:02 Aspirin 81 Mg Ec Tablet PO Not Given DAILY [facility] Atorvastatin Calcium 40 mg 04/23/24 19:19 04/25/24 17:16 Atorvastatin 40 Mg Tablet PO Not Given QPM [facility] Diltiazem HCl 120 mg 04/24/24 09:00 04/26/24 09:02 Diltiazem Er (24hr) 120 Mg Capsule PO Not Given DAILY [facility] Heparin Sodium (Porcine) 5,000 unit 04/25/24 22:00 04/26/24 09:13 Heparin 5,000 Unit/Ml Inj 1 Ml SUBCUT 5,000 unit Q12H ENRIQUE Administration Hydralazine HCl 10 mg 04/26/24 04:25 04/26/24 09:12 Hydralazine 20 Mg/Ml Inj 1 Ml IVP 10 mg Q4H PRN Administration BP greater than 180 sys or 110 diastolic Piperacillin Sod/Tazobactam 50 mls @ 12.5 mls/hr 04/23/24 19:45 04/26/24 05:26 Sod 3.375 gm/ Sodium Chloride IV 12.5 mls/hr Q8H ENRIQUE Administration Azithromycin 500 mg/ Sodium 250 mls @ 250 mls/hr 04/25/24 08:45 04/26/24 09:12 Chloride IV 250 mls/hr Q24H ENRIQUE Administration Protocol Dexmedetomidine/Sodium Chloride 400 mcg in 100 mls @ 0 mls/hr 04/25/24 11:30 04/26/24 04:04 Precedex IV 0 mcg/kg/hr .Q0M ENRIQUE 0 mls/hr Titration Protocol Per Protocol Insulin Human Lispro 0 unit 04/23/24 19:19 04/26/24 09:12 Insulin Lispro 100 Unit/1 Ml SUBCUT 8 unit WM&BEDTIME ENRIQUE Administration Protocol Lisinopril 40 mg 04/24/24 09:00 04/26/24 09:02 Lisinopril 20 Mg Tablet PO Not Given DAILY ENRIQUE Metoprolol Succinate 50 mg 04/24/24 09:00 04/26/24 09:02 Metoprolol Succinate Er (24 Hr) 50 Mg Tablet PO Not Given DAILY ENRIQUE Morphine Sulfate 2 mg 04/23/24 19:19 04/25/24 03:25 Morphine 4 Mg/Ml Sdv 1 Ml IVP 2 mg Q4H PRN Administration SEVERE PAIN Pantoprazole Sodium 40 mg 04/23/24 19:19 04/26/24 06:42 Pantoprazole 40 Mg Sdv IVP 40 mg Q12H ENRIQUE Administration PFSH Acute PFSH: Medical History History of nonmelanoma skin cancer History of malignant melanoma Anemia CAD (coronary artery disease) Epistaxis Bronchitis Chest pain Chronic kidney disease, stage 3 Dyspnea Hypercholesterolemia Hypokalemia Dental infection Lung mass Palpitations Sleep apnea Solitary lung nodule Type 2 diabetes mellitus Surgical History Status post tracheostomy Social History Smoking and tobacco/nicotine status: never used tobacco/nicotine Second hand smoke exposure: Yes Alcohol intake: never Substance/Drug Use: never Vitals/I&O/Wt Last Vital Signs Temp 98.1 F 04/26/24 08:30 Pulse 74 04/26/24 08:40 Resp 24 H 04/26/24 08:30 BP 176/81 04/26/24 08:30 Pulse Ox 95 04/26/24 08:40 O2 Del Method BiPAP 04/26/24 04:00 O2 Flow Rate 8 04/26/24 08:40 04/25/24 04/26/24 04/26/24 22:59 06:59 14:59 Intake Total 387.748 / 687.748 498.621 / 1186.369 Output Total 450 / 450 650 / 1100 Balance -62.252 / 237.748 -151.379 / 86.369 Weight last 48 hrs Weight 347 lb 3.649 oz Weight 354 lb 15.108 oz Physical Exam Narrative: The patient is arousable to tactile stimuli. Patient is eyes are open. Pupils 4 mm round reactive to light and accommodation. Patient does not follow commands. Patient does respond to visual threat. Patient does not move extremities to commands. Deep tendon reflexes grossly 1+. Plantar responses flexor bilaterally. There was no clonus. Sensory examination intact to touch. Throat clear. Lungs clear. Heart regular rhythm and rate. Extremities were negative for cyanosis Urinary Catheter Management: Craven: Cath Placed During This Visit: yes Reason for Continuing Indwelling Catheter: Accurate Measurement of Urinary Output in Critically Ill Patients Urinary Catheter Date of Insertion: 04/23/24 Urinary Catheter Time of Insertion: 20:06 Data 04/26/24 05:22 04/26/24 05:22 Micro: Microbiology 04/23/24 15:02 Urine Culture - Final Urine Catheterized 04/25/24 11:16 Blood Culture - Preliminary Blood SPECIMEN COLLECTED 04/25/24 11:14 Blood Culture - Preliminary Blood SPECIMEN COLLECTED A&P Assessment and plan (1) Acute encephalopathy: Impression: 1. Acute encephalopathy Plan: 1. Agree with lumbar puncture under fluoroscopy by radiology to rule out 2. Agree with head MRI to assess for brain metastasis 3. Will consider bedside EEG to assess for seizures Consult Attestations Medical Necessity Statement: . Patient was evaluated by neurology for altered mental status/encephalopathy Coding Level of Care Code 09748 Diagnoses Acute encephalopathy G93.40
[2024-04-26 11:39] LABS: Glucose Point of Care 204 mg/dL (70-110)
[2024-04-26] MEDS: insulin glargine 100 units/1 mL 15 UNIT SUBCUT ×2 (11:45→22:07)
[2024-04-26] MEDS: SODIUM CHLORIDE 0.9% IV (14:36)
[2024-04-26] MEDS: ACYCLOVIR IV (14:36)
[2024-04-26] MEDS: LORazepam 2 mg/mL INJ 1 mL 1 MG IVP (14:36)
--- NOTE | 2024-04-26 14:51 | PC.SOCIAL ---
IMM Updated Updated pt's on IMM. No questions voiced. Provided pt a copy. Initialed, dated, & timed a copy & placed in chart.
--- NOTE | 2024-04-26 14:59 | P.PN_ITS ---
Subjective 2 Subjective: Patient was examined this morning, he is alert to person, not to place, not to time, he can track, he can withdraw from pain, he tries to mouth a couple of words, afebrile overnight, normotensive, on BiPAP Vitals/I&O/Wt Last Vital Signs Temp 98.7 F 04/26/24 11:36 Pulse 82 04/26/24 14:00 Resp 21 H 04/26/24 14:00 BP 146/89 04/26/24 14:00 Pulse Ox 96 04/26/24 14:00 O2 Del Method BiPAP 04/26/24 04:00 O2 Flow Rate 8 04/26/24 08:40 04/25/24 04/26/24 04/26/24 22:59 06:59 14:59 Intake Total 387.748 / 687.748 498.621 / 1186.369 300 / 300 Output Total 450 / 450 650 / 1100 Balance -62.252 / 237.748 -151.379 / 86.369 300 / 300 Weight last 48 hrs Weight 157.5 kg Weight 161 kg Physical Exam 2 Const: COMMON NORMALS: no acute distress Eye: COMMON NORMALS: Equal, round and reactive pupils present PUPIL: Yes Equal, round and reactive pupils present Neck/C-Spine: COMMON NORMALS: full ROM and no lymphadenopathy Chest: OTHER: Pustular rash multiple satellite regions throughout the chest Maculopapular papular rash erythematous irregular borders throughout the chest, Resp: COMMON NORMALS: normal respiratory effort, No retractions, No use of accessory muscles and clear to auscultation bilaterally AUSCULTATION: clear to auscultation bilaterally Cardio: COMMON NORMALS: regular rate, regular rhythm, S1 normal heart sound present and S2 normal heart sound present RATE: regular rate RHYTHM: r egular rhythm HEART SOUNDS: S1 normal heart sound present and S2 normal heart sound present GI: COMMON NORMALS: Normal to inspection, nondistended, normoactive bowel sounds present and non-tender Extremity: COMMON NORMALS: no pedal edema Neuro: OTHER: Alert to person, not to place, time he moves bilateral upper lower extremities, withdraws from pain localizes pain Psych: COMMON NORMALS: mental status grossly normal Urinary Catheter Management: Craven: Cath Placed During This Visit: yes Reason for Continuing Indwelling Catheter: Accurate Measurement of Urinary Output in Critically Ill Patients Urinary Catheter Date of Insertion: 04/23/24 Urinary Catheter Time of Insertion: 20:06 Data 04/26/24 05:22 04/26/24 05:22 Micro: Microbiology 04/25/24 11:14 Blood Culture - Preliminary Blood NEGATIVE TO DATE 04/25/24 11:16 Blood Culture - Preliminary Blood NEGATIVE TO DATE 04/23/24 15:02 Urine Culture - Final Urine Catheterized A&P Assessment and plan (1) Nausea & vomiting: (2) Chronic kidney disease: (3) History of nonmelanoma skin cancer: (4) Immunosuppression: (5) Weakness: (6) Respiratory syncytial virus: (7) Increased anion gap metabolic acidosis: (8) NSTEMI (non-ST elevated myocardial infarction): (9) Fever: (10) Acute encephalopathy: (11) Acute hypoxic respiratory failure: (12) Congestive heart failure: (13) Pneumonia: (14) Shingles: (15) Viral meningitis: Plan Acute encephalopathy -Persistent encephalopathy -Some component related to RSV -Pneumonia -Blood cultures so far no growth -Repeat blood cultures so far no growth -Due to fevers and encephalopathy overnight, viral studies ordered, HSV, VZV, beta 1-3 glucan, LDH, -Concerns for possible viral meningitis lumbar puncture ordered -with shingles rash, started on IV acyclovir -MRI brain ordered given history of melanoma -Neurochecks, and a stroke scale - broad-spectrum antibiotic therapy vancomycin, Zosyn, azithromycin -CT head no acute findings, repeat head CT no acute findings -Monitor mentation closely Shingles-like rash on chest -On contact precautions -Started on IV acyclovir Bacterial pneumonia CT imaging 2. Focal nodular opacities and ground-glass in both upper lobes, possibly reflecting alveolar edema or developing infection. Metastatic disease would be difficult to exclude given history of primary malignancy. Consider follow-up CT of the chest in 4-6 weeks to assess for resolution. If persistent, PET-CT may be helpful. -Continue vancomycin, Zosyn -Follow blood cultures -Monitor respiratory status -Aspiration precautions -Currently n.p.o. Acute hypoxic hypercarbic respiratory failure -Likely component related to CO2 retention, CHF, obesity hypoventilation syndrome -Patient's family has declined using her BiPAP Plan -Patient's home machine for now as he is using his CPAP mask, but if respiratory status worsens will likely need our BiPAP -Monitor respiratory status closely -Albuterol -Lasix on hold -Steroids on hold Fevers -Likely sec to RSV -With pneumonia -Concerns for possible viral meningitis? -However does have immunocompromised state with history of melanoma -Does have an area of cellulitis on the back measuring 5 x 5 cm, monitor -Follow blood cultures -Repeated blood cultures, respiratory viral panel NSTEMI -No chest pain complaints -History of CAD -aspirin, statin, beta shaquille -Cardiac echo CONCLUSIONS Technically very limited quality echocardiogram because of poor ultrasonic windows. LV systolic function is normal with EF of 60-65%. Mild aortic stenosis. Mild tricuspid regurgitation. Moderate pulmonary hypertension Valves are not well visualized. No comparison studies are available. -Serial EKGs, serial troponins, telemetry monitoring- -heparin drip for 48 hours completed, will switch to DVT prophylaxis Lovenox -Venous ultrasound for DVT Lower extremity edema, venous ultrasound negative for DVT Type 2 diabetes mellitus -Takes Tresiba 100 units twice daily, NovoLog sliding scale -Decrease Lantus 15 units twice daily, NovoLog sliding scale -Cardiac diet Nausea and vomiting, CT abdomen no acute findings RAYMOND on CKD, monitor -History of preparation for end-stage renal disease, as a dialysis fistula in place, has not been used as of yet -Repeat BMP this afternoon will consider consulting nephrology Moderate right hydronephrosis, no kidney stone seen -Patient's tells me that this is chronic -Will monitor Morbid obesity Agitation, placed on Precedex drip as needed History of melanoma status post surgical resection Full code Heparin drip for DVT prophylaxis Plan for today MRI of the brain, monitor mentation neurology consulted lumbar puncture continue IV antibiotics, IV acyclovir, monitor mentation closely follow cultures, follow inflammatory markers, does have metabolic acidosis, recheck BMP this afternoon will consider consulting nephrology Attestations 2 Medical Necessity Statement*: Patient requires hospitalization, inpatient, greater than 2 midnights for acute encephalopathy, pneumonia, CKD, consulting neurology, possibly nephrology metabolic acidosis, RAYMOND, proceeding with MRI lumbar puncture will consider EGD Diagnoses Nausea & vomiting R11.2 Chronic kidney disease N18.9 History of nonmelanoma skin cancer Z85.828 Immunosuppression D84.9 Weakness R53.1 Respiratory syncytial virus B33.8 Increased anion gap metabolic acidosis E87.29 NSTEMI (non-ST elevated myocardial infarction) I21.4 Fever R50.9 Acute encephalopathy G93.40 Acute hypoxic respiratory failure J96.01 Congestive heart failure I50.9 Pneumonia J18.9 Shingles B02.9 Viral meningitis A87.9
[2024-04-26 16:42] LABS: CSF Mononuclear # 0.009 10^3/uL (50-90); Mononuclear WBC CSF % 100 % (50-90); Polynuclear WBC CSF % 0 % (0-10); Red Blood Cell CSF 0 10^3/uL (0-0); White Blood Cell CSF 9 /uL (0-5)
[2024-04-26 16:43] LABS: Appearance CSF CLEAR (CLEAR); Color CSF COLORLESS (COLORLESS); Cyto Order Verification No Order
[2024-04-26 16:44] LABS: Pathology Referral Yes
[2024-04-26 16:55] LABS: Glucose Point of Care 200 mg/dL (70-110)
[2024-04-26 16:58] LABS: CSF Specific Gravity 1.007
[2024-04-26 17:02] LABS: Glucose CSF 124 mg/dL (40-70); Total Protein CSF 62 mg/dL (15-45)
[2024-04-26 18:11] LABS: Anion Gap 23.2 (5-19); Blood Urea Nitrogen 64 mg/dL (8-23); Calcium 8.4 mg/dL (8.5-10.5); Carbon Dioxide 16 mmol/L (22-29); Chloride 109 mmol/L (98-107); Creatinine Clr Calc Pharmacy 28.5127; Glucose 214 mg/dL (65-115); Osmolality Calculated 323 mOsm/kg (285-295); Potassium 4.2 mmol/L (3.5-5.1); Sodium 144 mmol/L (136-145); Vancomycin Trough 21.3 ug/mL (10-15)
[2024-04-26 22:03] LABS: Glucose Point of Care 184 mg/dL (70-110)
[2024-04-27] VITALS (44 sets, daily range): BP systolic 75–197; BP diastolic 38–100; PULSE 67–104; RESP 16–42; TEMP 36.5–37.1; O2SAT 87–98
--- NOTE | 2024-04-27 00:07 | PC.NURSE ---
Contacted Dr. Batista in reference to repeated high BP after hydralazine PRN used 2 hours previously. Received orders for 10mg hydralazine IVP ONCE NOW, and to resume existing hydralazine PRN order as needed.
[2024-04-27] MEDS: hyDRALAzine 20 mg/mL INJ 1 mL 10 MG IVP ×3 (00:20→05:10)
[2024-04-27] MEDS: piperacillin-tazobactam 3.375 GM in sodium chloride 0.9% (plus) 50 ML IV ×2 (02:49→11:35)
[2024-04-27 05:27] LABS: Basophils % 0.3 %; Hematocrit 37.7 % (37-53); Lymphocytes # 0.9 10^3/uL (0.8-4.8); Lymphocytes % 7.5 %; Mean Corpuscular HGB Conc 28.6 g/dL (30-55); Mean Corpuscular Hemoglobin 23.5 pg (27-33); Mean Platelet Volume 9.5 fL (7.4-10.4); Monocytes # 0.4 10^3/uL (0.2-0.9); Monocytes % 3.4 %; Neutrophils # 10.59 10^3/uL (1.8-7.7); Neutrophils % 88.2 %; Nucleated Red Blood Cells % 0 %; Platelet Count 410 10^3/cmm (157-399); Red Cell Distribution Width 17.7 % (12.1-15.1); White Blood Count 12.01 10^3/uL (3.29-11.43)
[2024-04-27 06:05] LABS: Lactate (Lactic Acid level) 1.4 mmol/L (0.5-2.2)
[2024-04-27 06:09] LABS: Vancomycin Random 24.2 ug/mL (20.0-40.0)
[2024-04-27 06:10] LABS: Alanine Aminotransferase 8 U/L (0-41); Alkaline Phosphatase 116 U/L (40-130); Anion Gap 24.3 (5-19); Aspartate Amino Transferase 30 U/L (0-40); Blood Urea Nitrogen 74 mg/dL (8-23); Calcium 9.3 mg/dL (8.5-10.5); Carbon Dioxide 18 mmol/L (22-29); Chloride 107 mmol/L (98-107); Creatinine Clr Calc Pharmacy 25.1973; Globulin 3.5 g/dL (1.3-4.6); Glomerular Filtration Rate 13.9 mL/min (90-130); Glucose 187 mg/dL (65-115); Magnesium 2.3 mg/dL (1.7-2.3); Osmolality Calculated 327 mOsm/kg (285-295); Phosphorus 3.7 mg/dL (2.5-4.5); Potassium 4.3 mmol/L (3.5-5.1); Sodium 145 mmol/L (136-145); Total Bilirubin 0.8 mg/dL (0.15-1.2); Total Protein 6.5 g/dL (6.6-8.7)
[2024-04-27 06:15] LABS: NT Pro B Type Natriuretic Pept 8196 pg/mL (0-125); Procalcitonin 0.91 ng/mL (0-0.5)
[2024-04-27 06:42] LABS: ABG PCO2 32.7 mmHg (35-45); ABG PH Result 7.35 (7.35-7.45); Arterial Blood Gas Hematocrit 35.6 % (42-52); Base Excess ABG -6.9 mmol/L (-2.0-2.0); Blood Gas Allen Test Pos; Blood Gas Operator Identificat ED; Blood Gas Sample Site Radial, right; Blood Gas Sample Type Arterial; HCO3 ABG 17.8 mmol/L (22-26); Oxygen Device BIPAP; PO2 ABG 95.6 mmHg (80.0-100.0)
--- NOTE | 2024-04-27 07:00 | XRR_ITS ---
PROCEDURE INFORMATION: Exam: XR Chest Exam date and time: 04/27/2024 5:50 AM Age: 68 years old Clinical indication: Shortness of breath; Additional info: SOB TECHNIQUE: Imaging protocol: Radiologic exam of the chest. Views: 1 view. COMPARISON: CR (CHEST, ) 04/24/2024 5:11 PM FINDINGS: Lungs: Left lung collapse. Clearing of the right lung with increased aeration of the base compared to prior. Pleural spaces: Probable left pleural effusion. Blunted right costophrenic angle. Heart/Mediastinum: Leftward mediastinal deviation. The cardiac silhouette is not characterized. Bones/joints: Unremarkable. XR/XR chest 1V portable [id number] IMPRESSION: Interval collapse of the left lung with mediastinal shift is suspected. Consider mucous plugging.
--- NOTE | 2024-04-27 07:19 | PC.NURSE ---
0505: Spoke with Dr. Batista in reference to patients continued high BP after PRN hydralazine. Received orders for 1 additional dose 10 mg hydralazine IVP ONCE NOW.
[2024-04-27] MEDS: pantoprazole 40 mg SDV IVP (07:28)
--- NOTE | 2024-04-27 07:33 | P.PCN_ITS ---
Documented by User: Laverne Rankincamjaiden 04/27/24 08:35 EEG Routine Details of Procedure Details/Comments: Rob Fenton is a 68 year old male with a history of chronic obstructive pulmonary disease obesity and nonmelanoma skin cancer and history of malignant melanoma. Patient admitted with respiratory syncytial virus. The patient was reported to have decreased level consciousness/altered mental status with clinical findings suggestive of encephalopathy. Noncontrast head CT was obtained reported to be negative. Blood and urine cultures reported to be negative. In view of the patient's encephalopathic picture a neurology consult was obtained. The attending reported patient has been scheduled for head MRI as well as lumbar puncture under fluoroscopy by radiology. EEG to assess for subclinical seizures EEG Routine 91207- awake & drowsy: 86671 (Portable EEG ICU#5 to assess for subclinical seizure activity.) Documented by User: Kuldeep Alejandro MD 04/28/24 12:42 EEG Routine Details of Procedure Details/Comments: Rob Fenton is a 68 year old male with a history of chronic obstructive pulmonary disease obesity and nonmelanoma skin cancer and history of malignant melanoma. Patient admitted with respiratory syncytial virus. The patient was reported to have decreased level consciousness/altered mental status with clinical findings suggestive of encephalopathy. Noncontrast head CT was obtained reported to be negative. Blood and urine cultures reported to be negative. In view of the patient's encephalopathic picture a neurology consult was obtained. The attending reported patient has been scheduled for head MRI as well as lumbar puncture under fluoroscopy by radiology. EEG to assess for subclinical seizures EEG TEMPLATE: This is a 19 channel routine video surface EEG recording utilizing the [employer] display [employer] software with surface and EKG electrodes. The procedure was performed utilizing the international 10-20 system. Patient name: Rob Fenton Date of : 1955 Patient age [age] years old Identification number: [id number] Referring Physician: Kenneth Armendariz MD Physician interpreting study: Kuldeep Alejandro MD EEG#: EEG Start time: 07:48:31 EEG End time: Not reported Duration of study: 20 minutes Date of study: 04/27/2024 Reason for study: Diffuse encephalopathic process with decreased level consciousness assess for subclinical seizures and assist in determining if anticonvulsant medications are required Skull defects: None Condition of recording: The patient was reported to be awake but not responding and later on drowsy Cooperation: Not following commands Activation procedures: None Medications: Dipper Van, discontinued, Mucomyst amiodarone, discontinued hydralazine, discontinued, vancomycin, Ativan, discontinued Zovirax discontinued Background activity: Background activity during wakefulness consisted of 6 Hz low voltage theta activity posteriorly penetrated by intermittent low voltage beta activity centrally and anteriorly. Intermittently during the recording the record was partially obscured by muscle artifacts. Interictal activity: None Ictal activity: None Impression: This is an abnormal awake and drowsy 20-minute portable surface EEG recording secondary to generalized 6 Hz low voltage theta slowing seen during wakefulness. Note: No seizure activity was seen. Clinical correlation: The generalized slowing of the background rhythm is consistent with a diffuse encephalopathic process, nonspecific with regards to etiology. Note: No seizure activity was seen. Physician name/Signature: Kuldeep Alejandro MD trucker/Signature: Laverne Burris
[2024-04-27 07:40] LABS: Glucose Point of Care 153 mg/dL (70-110)
[2024-04-27] MEDS: insulin lispro 100 unit/1 mL SUBCUT ×3 (08:00→17:33)
[2024-04-27] MEDS: sodium chloride 3.5% neb 4 mL Neb INHALATION (09:25)
[2024-04-27] MEDS: albuterol 2.5 mg/3 mL Neb INHALATION ×3 (09:25→15:09)
[2024-04-27] MEDS: AZITHROMYCIN ADD-Vantage 500 MG in 0.9% NaCl ADD-Vantage 250 ML 250 MG IV (09:37)
[2024-04-27] MEDS: insulin glargine 100 units/1 mL 15 UNIT SUBCUT (09:38)
--- NOTE | 2024-04-27 10:19 | PC.NURSE ---
upon morning assessment patient was unresponsive, even to painful stimuli (sternal rub). However about an hour later patient would open his eyes and track nurse around the room, and shortly later became unresponsive again.
--- NOTE | 2024-04-27 10:58 | PC.NURSE ---
Patient unable to take oral meds due to mental status. patient did not receive Aspirin, Cardizem, metoprolol, lisinopril. He did not receive those yesterday either for the same reason. NUrse alerted Dr elder. Received orders for amiodarone drip, no bolus to be given.
[2024-04-27] MEDS: acetylcysteine 200 mg/mL MDV 10 mL 100 MG INHALATION ×2 (11:41→15:08)
[2024-04-27] MEDS: FUROsemide 10 mg/mL SDV 4mL 40 MG IVP (11:47)
--- NOTE | 2024-04-27 12:00 | XRR_ITS ---
PROCEDURE INFORMATION: Exam: XR Chest Exam date and time: 04/27/2024 11:58 AM Age: 68 years old Clinical indication: Shortness of breath; Additional info: Ll L collpase, mucus plugging TECHNIQUE: Imaging protocol: Radiologic exam of the chest. Views: 1 view. Total images: 474 COMPARISON: CR XR chest 1V portable [id number] 04/27/2024 5:50 AM FINDINGS: Lungs: Nonspecific mild opacity in the right lung base, favoring atelectasis or pneumonia. Pleural spaces: Unremarkable. No pleural effusion. No pneumothorax. Heart/Mediastinum: Whiteout of the left hemithorax with shift of mediastinal structures to the left unchanged from prior exam. Bones/joints: Osseous structures are unchanged from the prior exam. XR/XR chest 1V portable [id number] IMPRESSION: 1. Whiteout of the left hemithorax with shift of mediastinal structures to the left unchanged from prior exam. 2. Nonspecific mild opacity in the right lung base, favoring atelectasis or pneumonia.
[2024-04-27 12:07] LABS: Glucose Point of Care 153 mg/dL (70-110)
--- NOTE | 2024-04-27 13:52 | XRR_ITS ---
PROCEDURE INFORMATION: Exam: XR Chest Exam date and time: 04/27/2024 2:02 PM Age: 68 years old Clinical indication: Device placement; Ett placement (vent status); Additional info: Intubation and og tube verification TECHNIQUE: Imaging protocol: Radiologic exam of the chest. Views: 1 view. Total images: 1651 COMPARISON: CR XR chest 1V portable [id number] 04/27/2024 11:58 AM FINDINGS: Tubes, catheters and devices: Endotracheal tube overlies the trachea with the tip 5.0 cm above the ronal in satisfactory position.Enteric tube is seen with the tip in the body of the stomach. Lungs: Right pulmonary opacity is again noted and has shown interval worsening from the prior exam. Pleural spaces: Unremarkable. No pleural effusion. No pneumothorax. Heart/Mediastinum: Whiteout of left hemithorax with shift of mediastinal structures to the left unchanged from prior exam. Bones/joints: Osseous structures are unchanged from the prior exam. XR/XR chest 1V portable [id number] IMPRESSION: 1. Endotracheal tube overlies the trachea with the tip 5.0 cm above the ronal in satisfactory position.Enteric tube is seen with the tip in the body of the stomach. 2. Whiteout of left hemithorax with shift of mediastinal structures to the left unchanged from prior exam. 3. Right pulmonary opacity is again noted and has shown interval worsening from the prior exam.
[2024-04-27] MEDS: propofol 1,000 MG/100 ML INJ 4.73 MG IV (14:00)
[2024-04-27] MEDS: fentaNYL 1,000 MCG/100 ML BAG 2.5 MCG IV (14:18)
--- NOTE | 2024-04-27 14:21 | ANES.PROC ---
Anesthesia Procedures Procedure/Date: 04/27/24 Intubation: Time Out Performed: Yes Consent: requested by attending/covering physician Sedative (amount): other (Propofol 200 mg IV) Paralytic (amount): succinylcholine (160 mg) Laryngoscope: fiber optic video scope (Glidscope S4 hyperangle) ET Tube Size: 8 ET Tube Uncuffed: Yes Tube Secured Depth (cm): 23 Tube Secured Location: teeth Tube Placement Confirmation: visualized tube passing through cords, equal breath sounds bilaterally, confirmation by capnometry and color change noted Patient Tolerated Procedure: well Intubation Complications: none
[2024-04-27] MEDS: succinylcholine 20 mg/mL SDV 10mL 160 MG IVP (14:33)
[2024-04-27] MEDS: norepinephrine 4 MG/250 ML BAG 37.5 MG IV (14:34)
--- NOTE | 2024-04-27 14:36 | P.PN_ITS ---
Subjective 2 Subjective: - Patient was examined multiple times th roughout the morning and into the afternoon -Early in the morning he was seen, he he does awaken, does localize pain, does not follow commands pupils equal round reactive to light, he is protecting his airway, decrease air movement in bilateral left upper and left lower lung bryan, nasal flaring, intercostal retractions, suprasternal retractions, tachypnea saturating in the mid 90s on 3 L -Remains normotensive, afebrile, urine o utput 1100 cc -Review of chest x-ray shows whiteout of the left lung, likely mucous plugging could be aspiration however patient has been n.p.o. -Chest vest therapy ordered, Mucomyst, h ypertonic saline, repeat chest x-ray at noon time -Patient had EEG done earlier this ellie edwards, spoke to neurology, showed generalized slowing, likely represent of encephalopathy, no evidence of seizures or grand mal seizures -Reviewed patient's LP studies CSF was c lear, colorless, 9 WBCs, glucose 134, total protein 62 he is a diabetic -Continue acyclovir for now -Patient remains on broad-spectrum antib iotic therapy -Creatinine 4.3, urine output of 1000 cc , looks a bit fluid overloaded 1 dose IV Lasix -Throughout the morning patient remained encephalopathic according to nursing staff, he did use a BiPAP throughout the night, currently on nasal cannula saturating the mid 90s on 3 L, diffusely encephalopathic but becoming less responsive in mild to moderate respiratory distress -Repeat chest x-ray at noon time continu es to show a left lung whiteout despite suctioning pulmonary toilet by RT, Mucomyst, hypertonic saline, chest vest -Spoke to nursing staff, as patient cont inues to have mild to moderate respiratory distress, remains encephalopathic, concerns for worsening pending respiratory failure with whiteout of left lung decision was made to intubate patient -Spoke to son outside the room, discusse d risks and benefits of intubation, he voiced understanding, all questions answered, -Spoke to patient's over the phone, discussed risk and benefits of intubation, she voiced understanding, all question answered, agreed to proceed patient remains a full code -Discussed with patient's clinical progress, the results of his EEG, MRI, LP, persistent encephalopathy, now with whiteout of the left lung with respiratory failure, concerns for impending respiratory arrest, decision made to intubate patient, after discussion with benefits, she was consented, all questions answered, agreed to proceed patient will likely need a bronchoscopy procedure, all patient's specialist including voip network technician, oncologist are at [facility] recommended transfer there according to family's wishes -Anesthesia was consulted for intubation -Was present there during intubation pro cess, patient was intubated placed on propofol and fentanyl for sedation -Patient was seen intubated, placed on v entilator, propofol fentanyl for sedation -Chest x-ray status post intubation cont inues to show whiteout of left lung -Spoke to RT for deep suctioning, will d iscuss with [facility] about transfer - Vitals/I&O/Wt Last Vital Signs Temp 98.2 F 04/27/24 09:00 Pulse 100 04/27/24 11:44 Resp 20 H 04/27/24 14:01 BP 152/90 04/27/24 10:00 Pulse Ox 95 04/27/24 14:01 O2 Del Method Nasal Cannula 04/27/24 11:44 O2 Flow Rate 3 04/27/24 11:44 FiO2 100 04/27/24 14:01 04/26/24 04/27/24 04/27/24 22:59 06:59 14:59 Intake Total 1132 / 1432 50 / 1482 Output Total 350 / 350 300 / 300 Balance 1132 / 1432 -300 / 1132 -300 / -300 Weight last 48 hrs Weight 157.546 kg Weight 157.5 kg Physical Exam 2 Const: COMMON NORMALS: no acute distress GENERAL APPEARANCE: lethargic O RIENTATION/CONSCIOUSNESS: Yes awake, Yes confused, Yes patient obtunded and Yes lethargic; not oriented to person, not oriented to place and not oriented to time Eye: COMMON NORMALS: Equal, round and reactive pupils present PUPIL: Yes Equal, round and reactive pupils present Neck/C-Spine: COMMON NORMALS: full ROM and no lymphadenopathy Lymph: LYMPHATIC: no lymphadenopathy noted Resp: OTHER: Left lung, decreased air movement bilateral upper and lower lung bryan, nasal flaring, intercostal retractions, suprasternal retractions Cardio: COMMON NORMALS: regular rate, regular rhythm, S1 normal heart sound present and S2 normal heart sound present RATE: regular rate RHYTHM: r egular rhythm HEART SOUNDS: S1 normal heart sound present and S2 normal heart sound present GI: COMMON NORMALS: Normal to inspection, nondistended, normoactive bowel sounds present and non-tender Extremity: NARRATIVE EXTREMITY EXAM: 1+ pitting edema Neuro: SENSORIUM/ORIENTATION: No oriented to person, No oriented to place, No oriented to time and Yes lethargic OTHER: Moves bilateral upper and lower extremities, does not follow commands Skin: NARRATIVE SKIN EXAM: Rash on anterior chest, nodular rash, various stages, pustular in appearance Urinary Catheter Management: Craven: Cath Placed During This Visit: yes Reason for Continuing Indwelling Catheter: Accurate Measurement of Urinary Output in Critically Ill Patients Urinary Catheter Date of Insertion: 04/23/24 Urinary Catheter Time of Insertion: 20:06 Sepsis: Is patient septic: No Focused sepsis exam performed: Yes Focused sepsis exam: DP PT pulses palpable, capillary fill less than 2 seconds, no mottling, Date exam was performed: 04/27/24 Time exam was performed: 08:30 Data 04/27/24 03:25 04/27/24 03:25 Micro: Microbiology 04/26/24 15:45 Gram Stain - Final Cerebrospinal Fluid CSF Culture - Preliminary Cryptococcal Antigen (CSF) - Final 04/25/24 11:14 Blood Culture - Preliminary Blood NEGATIVE TO DATE 04/25/24 11:16 Blood Culture - Preliminary Blood NEGATIVE TO DATE A&P Assessment and plan (1) Nausea & vomiting: (2) Chronic kidney disease: (3) History of nonmelanoma skin cancer: (4) Immunosuppression: (5) Weakness: (6) Respiratory syncytial virus: (7) Increased anion gap metabolic acidosis: (8) NSTEMI (non-ST elevated myocardial infarction): (9) Fever: (10) Acute encephalopathy: (11) Acute hypoxic respiratory failure: (12) Congestive heart failure: (13) Pneumonia: (14) Shingles: (15) Viral meningitis: (16) Collapse of left lung: Plan Acute encephalopathy -So far remains afebrile for the last 48 hours -Remains normotensive -Persistent global encephalopathy -Some component related to RSV -Pneumonia -Blood cultures so far no growth -Repeat blood cultures so far no growth -UA no significant evidence of infection -Remains on broad-spectrum antibiotic therapy vancomycin, Zosyn -CSF studies 9 WBCs, glucose 124, total protein 62, Gram stain no organisms, no WBCs, culture pending -Sed rate is increased to 109, CT lumbar spine, CT chest abdomen pelvis no evidence of discitis or vertebral osteomyelitis consider CT cervical spine based on clinical progress -Pro-Chencho 0.91, CRP 83 -Viral studies such as HSV, VZV, CMV, Lyme pending - beta 1-3 glucan, LDH, pending -EEG shows generalized slowing, no seizure-like episodes -with shingles rash, concern for viral meningitis, coutinue IV acyclovir -MRI brain MR/MR head wo con* [id number] IMPRESSION: 1. No evidence of restricted diffusion to suggest acute ischemia. 2. Mild small vessel changes with moderate parenchymal volume loss. 3. Moderate symmetric atrophy temporal lobes and hippocampal formations. 4. Mild mucosal thickening paranasal sinuses and mastoid air cells. 5. No other acute findings. -Neurochecks, and a stroke scale - broad-spectrum antibiotic therapy vancomycin, Zosyn, azithromycin -CT head no acute findings, repeat head CT no acute findings -Monitor mentation closely -Neurology consulted Shingles-like rash on chest -On contact precautions -Started on IV acyclovir Bacterial pneumonia CT imaging 2. Focal nodular opacities and ground-glass in both upper lobes, possibly reflecting alveolar edema or developing infection. Metastatic disease would be difficult to exclude given history of primary malignancy. Consider follow-up CT of the chest in 4-6 weeks to assess for resolution. If persistent, PET-CT may be helpful. -Continue vancomycin, Zosyn -Follow blood cultures -Monitor respiratory status -Aspiration precautions -Currently n.p.o. Acute hypoxic hypercarbic respiratory failure -Likely component related to CO2 retention, CHF, obesity hypoventilation syndrome -on BIPAP at home -[place] home BIPAP -Now with evidence of left lung Whiteout of left hemithorax with shift of mediastinal structures persistent despite medical therapy -Now with evidence of mild to moderate respiratory distress Plan -Intubated mild to moderate respiratory distress -Intubated, sedated -Propofol, fentanyl for sedation -Minimize tidal volume, minimize FiO2 -Continue pulmonary toilet, chest vest, Mucomyst, hypertonic saline -Repeat chest x-ray -Monitor respiratory status closely -Albuterol -1 dose Lasix today -Will speak to [facility] for consideration of transfer for bronchoscopy procedure Fevers, fever free for the last 48 hours -Likely sec to RSV -With pneumonia -Concerns for possible viral meningitis? Viral studies pending as above -However does have immunocompromised state with history of melanoma -Does have an area of cellulitis on the back measuring 5 x 5 cm, monitor -Follow blood cultures -Repeated blood cultures so far no growth, respiratory viral panel no acute findings NSTEMI -No chest pain complaints -History of CAD -aspirin, statin, beta shaquille -Cardiac echo CONCLUSIONS Technically very limited quality echocardiogram because of poor ultrasonic windows. LV systolic function is normal with EF of 60-65%. Mild aortic stenosis. Mild tricuspid regurgitation. Moderate pulmonary hypertension Valves are not well visualized. No comparison studies are available. -Serial EKGs, serial troponins, telemetry monitoring- -heparin drip for 48 hours completed, on heparin -Venous ultrasound for DVT negative Lower extremity edema, venous ultrasound negative for DVT Type 2 diabetes mellitus -Takes Tresiba 100 units twice daily, NovoLog sliding scale -Decrease Lantus 10 units twice daily, NovoLog sliding scale -Cardiac diet Nausea and vomiting, CT abdomen no acute findings RAYMOND on CKD, monitor -History of preparation for end-stage renal disease, as a dialysis fistula in place, has not been used as of yet -Creatinine up to 4.3, repeat BMP Moderate right hydronephrosis, no kidney stone seen -Patient's tells me that this is chronic -Will monitor Morbid obesity Agitation, placed on Precedex drip as needed History of melanoma status post surgical resection Full code Heparin for DVT prophylaxis as above PDMP PDMP Reviewed: Not Reviewed Attestations 2 Medical Necessity Statement*: Patient requires hospitalization, for acute hypoxic respiratory failure secondary RSV, pneumonia, now with acute respiratory distress, whiteout left lung, persistent encephalopathy, RAYMOND, requiring intubation, mechanical ventilation Coding Level of Care Code Critical Care >/= 30 minutes Critical care time (in minutes): 60 The high probability of a clinically significant, sudden or life threatening deterioration, as referenced in this documentation, required my full and direct attention, intervention and personal management. The critical care time shown is in addition to time spent performing any reported separately billable procedures and includes the following: [x] Data and vital sign review and interpretation [x ] Patient assessment, examination and intervention [x] Medication orders and management [x] Patient/Family updates as able [x] Care Coordination and Documentation. Diagnoses Nausea & vomiting R11.2 Chronic kidney disease N18.9 History of nonmelanoma skin cancer Z85.828 Immunosuppression D84.9 Weakness R53.1 Respiratory syncytial virus B33.8 Increased anion gap metabolic acidosis E87.29 NSTEMI (non-ST elevated myocardial infarction) I21.4 Fever R50.9 Acute encephalopathy G93.40 Acute hypoxic respiratory failure J96.01 Congestive heart failure I50.9 Pneumonia J18.9 Shingles B02.9 Viral meningitis A87.9 Collapse of left lung J98.11
[2024-04-27] MEDS: ACYCLOVIR IV (14:58)
[2024-04-27] MEDS: SODIUM CHLORIDE 0.9% IV (14:58)
--- NOTE | 2024-04-27 15:03 | XRR_ITS ---
PROCEDURE INFORMATION: Exam: XR Chest Exam date and time: 04/27/2024 3:44 PM Age: 68 years old Clinical indication: Device placement; Picc; Additional info: Post picc insertion, karlos placing in icu 5. Should be ready at 1540 TECHNIQUE: Imaging protocol: Radiologic exam of the chest. Views: 1 view. Total images: 1 COMPARISON: CR XR chest 1V portable [id number] 04/27/2024 2:02 PM FINDINGS: Tubes, catheters and devices: Right-sided PICC tip is appropriately positioned with tip in SVC. Tubes and catheters are otherwise unchanged from the prior exam. Lungs: Right pulmonary opacity is again noted and appears unchanged from the prior exam. Pleural spaces: Unremarkable. No pleural effusion. No pneumothorax. Heart/Mediastinum: Near-complete whiteout of the left hemithorax with shift of mediastinal structures to the left unchanged from prior exam. Bones/joints: Unremarkable. XR/XR chest 1V portable [id number] IMPRESSION: 1. Right-sided PICC tip is appropriately positioned with tip in SVC. Tubes and catheters are otherwise unchanged from the prior exam. 2. Near-complete whiteout of the left hemithorax with shift of mediastinal structures to the left unchanged from prior exam. 3. Right pulmonary opacity is again noted and appears unchanged from the prior exam.
--- NOTE | 2024-04-27 16:23 | XRR_ITS ---
PROCEDURE INFORMATION: Exam: XR Chest Exam date and time: 04/27/2024 3:44 PM Age: 68 years old Clinical indication: Device placement; Picc; Additional info: Picc line adjustment TECHNIQUE: Imaging protocol: Radiologic exam of the chest. Views: 1 view. COMPARISON: CR XR chest 1V portable [id number] 04/27/2024 3:44 PM FINDINGS: Tubes, catheters and devices: Endotracheal tube tip terminates 7.3 cm above the ronal, recommend clinical correlation and repositioning as indicated.. Nasogastric tube extends into the left upper quadrant. right PICC line tip terminates in the region of the SVC. Lungs: right lower lobe opacification is again noted. Pleural spaces: No pleural effusion or pneumothorax noted. Heart/Mediastinum: There is a complete opacification of the left hemithorax with leftward shift of the mediastinum indicating atelectasis. Bones/joints: No acute osseous abnormality. XR/XR chest 1V portable [id number] IMPRESSION: 1. PICC line tip terminates in the region of the SVC. 2. Endotracheal tube tip terminates 7.3 cm above the ronal, recommend clinical correlation and repositioning as indicated. 3. Continued left hemithorax white out with mediastinal shift to the left indicating atelectasis. 4. Stable right lower lung opacification indicating atelectasis versus pneumonia.
--- NOTE | 2024-04-27 16:33 | P.TS_ITS ---
Transfer Summary Providers Date of Admission: 04/23/24 18:00 Date of Discharge/Transfer: 04/27/24 Attending Provider at Admission: Kenneth Armendariz MD Attending Provider at Transfer: Kenneth Armendariz MD Primary Care Provider: Antionette Saavedra MD Transfer Plans: Anticipated date of transfer: 04/27/24 . Diagnoses at Discharge Discharge Diagnosis (1) Nausea & vomiting: Status: Acute (2) Chronic kidney disease: Status: Chronic (3) History of nonmelanoma skin cancer: Status: Acute (4) Immunosuppression: Status: Acute (5) Weakness: Status: Acute (6) Respiratory syncytial virus: Status: Acute (7) Increased anion gap metabolic acidosis: Status: Acute (8) NSTEMI (non-ST elevated myocardial infarction): Status: Acute (9) Fever: Status: Acute (10) Acute encephalopathy: Status: Acute (11) Acute hypoxic respiratory failure: Status: Acute (12) Congestive heart failure: Status: Acute (13) Pneumonia: Status: Acute (14) Shingles: Status: Acute (15) Viral meningitis: Status: Acute (16) Collapse of left lung: Status: Acute Reason for Visit Reason for Visit generalized weakness Hospital Course Hospital Course Rob Fenton is a 68 year old male with a past medical history of CAD, statu s post LAD stenting, history of type 2 diabetes mellitus, hypertension and hyperlipidemia history of melanoma, on chemotherapy last session of chemotherapy was 4 weeks ago, history of CKD who presents to [facility] due to progressive weakness, fatigue, altered mental status, cough, sinus congestion, poor appetite. Currently patient alert to person, place not to time he can follow commands but frequently becomes confused at bedside helps with history taking. Patient tells me that he has a history of melanoma in multiple locations, is on chemotherapy, not on any immunotherapy, she tells over the last 4 weeks he has been progressively more weak, fatigue, malaise, poor appetite episodes of confusion, he has been feeling lightheaded, he has had a fall he does have an area over his back that has had drainage. He is appetite has decreased, he has had a cough, complains of shortness of breath,. Patient tells me he does not feel well, fatigue, malaise, fevers, chills, no chest pain, does report shortness of breath does report a cough, no abdominal pain, no diarrhea Patient was admitted to [facility] for acute hypoxic respiratory failure, acute encephalopathy, fevers, NSTEMI shortness of breath multifactorial from RSV, pneumonia, CHF requiring broad-spectrum antibiotic therapy, IV diuresis. Due to persistent encephalopathy patient was moved to ICU for close monitoring, LP performed so far results are unrevealing, MRI no acute findings EEG, showed diffuse slowing no acute findings, neurology was consulted. Patient had a broad workup for encephalopathy, CSF cultures so far unremarkable, viral studies and fungal studies are pending. Started on acyclovir for possible viral meningitis. He does have shingles like rash on anterior chest. Did require intermittent diuresis for fluid overload. 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 Nstemi, Completed anticoagulation for 48 hours, switch to subcu heparin. Monitored on dysphagia level 6 diet, speech therapy eval. The morning of 04/27/2024 patient had evidence of mild to moderate respiratory distress, worsening encephalopathy, chest x-ray showing whiteout of left lung, failing medical therapy, intubated placed on mechanical ventilation. Patient will be transferred to [facility] for pulmonary and bronchoscopic evaluation. In terms of encephalopathy viral studies are pending, blood cultures so far no growth, CSF studies so far no growth concern for persistent encephalopathy potentially related to patient's chemotherapy. ESR is 109, does have a rash on his back, no evidence of tunneling on CT chest abdomen pelvis, and thoracic spine CT. Acute encephalopathy -So far remains afebrile for the last 48 hours -Remains normotensive -Persistent global encephalopathy -Some component related to RSV -Pneumonia -Blood cultures so far no growth -Repeat blood cultures so far no growth -UA no significant evidence of infection -Remains on broad-spectrum antibiotic therapy vancomycin, Zosyn -CSF studies 9 WBCs, glucose 124, total protein 62, Gram stain no organisms, no WBCs, culture pending -Sed rate is increased to 109, CT lumbar spine, CT chest abdomen pelvis no evidence of discitis or vertebral osteomyelitis consider CT cervical spine based on clinical progress -Pro-Chencho 0.91, CRP 83 -Viral studies such as HSV, VZV, CMV, Lyme pending - beta 1-3 glucan, LDH, pending -EEG shows generalized slowing, no seizure-like episodes -with shingles rash, concern for viral meningitis, coutinue IV acyclovir -MRI brain MR/MR head wo con* [id number] IMPRESSION: 1. No evidence of restricted diffusion to suggest acute ischemia. 2. Mild small vessel changes with moderate parenchymal volume loss. 3. Moderate symmetric atrophy temporal lobes and hippocampal formations. 4. Mild mucosal thickening paranasal sinuses and mastoid air cells. 5. No other acute findings. -Neurochecks, and a stroke scale - broad-spectrum antibiotic therapy vancomycin, Zosyn, azithromycin -CT head no acute findings, repeat head CT no acute findings -Monitor mentation closely -Neurology consulted Shingles-like rash on chest -On contact precautions -Started on IV acyclovir Bacterial pneumonia CT imaging 2. Focal nodular opacities and ground-glass in both upper lobes, possibly reflecting alveolar edema or developing infection. Metastatic disease would be difficult to exclude given history of primary malignancy. Consider follow-up CT of the chest in 4-6 weeks to assess for resolution. If persistent, PET-CT may be helpful. -Continue vancomycin, Zosyn -Follow blood cultures -Monitor respiratory status -Aspiration precautions -Currently n.p.o. Acute hypoxic hypercarbic respiratory failure -Likely component related to CO2 retention, CHF, obesity hypoventilation syndrome -on BIPAP at home -Coutinue home BIPAP -Now with evidence of left lung Whiteout of left hemithorax with shift of mediastinal structures persistent despite medical therapy Orogastric tube does show bilious output, possible aspiration event? -Now with evidence of mild to moderate respiratory distress Plan -Intubated mild to moderate respiratory distress -Intubated, sedated -Propofol, fentanyl for sedation -Minimize tidal volume, minimize FiO2 -Continue pulmonary toilet, chest vest, Mucomyst, hypertonic saline -Repeat chest x-ray -Monitor respiratory status closely -Albuterol -1 dose Lasix today -Will speak to [facility] for consideration of transfer for bronchoscopy procedure Fevers, fever free for the last 48 hours -Likely sec to RSV -With pneumonia -Concerns for possible viral meningitis? Viral studies pending as above -However does have immunocompromised state with history of melanoma -Does have an area of cellulitis on the back measuring 5 x 5 cm, monitor -Follow blood cultures -Repeated blood cultures so far no growth, respiratory viral panel no acute findings Shock, currently on Levophed at 10 Atrial fibrillation, was on amiodarone, currently held due to bradycardia NSTEMI -No chest pain complaints -History of CAD -aspirin, statin, beta shaquille -Cardiac echo CONCLUSIONS Technically very limited quality echocardiogram because of poor ultrasonic windows. LV systolic function is normal with EF of 60-65%. Mild aortic stenosis. Mild tricuspid regurgitation. Moderate pulmonary hypertension Valves are not well visualized. No comparison studies are available. -Serial EKGs, serial troponins, telemetry monitoring- -heparin drip for 48 hours completed, on heparin -Venous ultrasound for DVT negative Lower extremity edema, venous ultrasound negative for DVT Type 2 diabetes mellitus -Takes Tresiba 100 units twice daily, NovoLog sliding scale -Decrease Lantus 10 units twice daily, NovoLog sliding scale -Cardiac diet Nausea and vomiting, CT abdomen no acute findings RAYMOND on CKD, monitor -History of preparation for end-stage renal disease, as a dialysis fistula in place, has not been used as of yet -Creatinine up to 4.3, repeat BMP Moderate right hydronephrosis, no kidney stone seen -Patient's tells me that this is chronic -Will monitor Morbid obesity Agitation, placed on Precedex drip as needed History of melanoma status post surgical resection Physical Exam Const: COMMON NORMALS: no acute distress OTHER: Intubated, sedated on mechanical ventilation Resp: COMMON NORMALS: normal respiratory effort, No retractions and No use of accessory muscles AUSCULTATION: crackles and wheezes Cardio: COMMON NORMALS: regular rate, regular rhythm, S1 normal heart sound present and S2 normal heart sound present RATE: regular rate RHYTHM: regular rhythm HEART SOUNDS: S1 normal heart sound present and S2 normal hea rt sound present GI: COMMON NORMALS: Normal to inspection, nondistended, normoactive bowel sounds present and non-tender Extremity: COMMON NORMALS: no clubbing, cyanosis or edema and no pedal edema NARRATIVE EXTREMITY EXAM: Left arm dialysis fistula in place Psych: COMMON NORMALS: mental status grossly normal Urinary Catheter Management: Craven: Cath Placed During This Visit: yes Reason for Continuing Indwelling Catheter: Accurate Measurement of Urinary Output in Critically Ill Patients Urinary Catheter Date of Insertion: 04/23/24 Urinary Catheter Time of Insertion: 20:06 TS Data Studies Completed and Pending Pending at discharge Category Date Time Status XR chest 1V portable [id number] Routine Exams 04/27/24 16:23 Taken 1-3 Beta D Glucan [Fungitell Glucan Assay (Blood)] Lab 04/25/24 11:14 Received Routine ABG FULL [Arterial Blood Gas Full] Stat Lab 04/27/24 14:00 Ordered Aspergillus AG,EIA,Serum Stat Lab 04/25/24 11:14 Received BLASTOMYCES AG [MVista Blastomyces AG Quant] Routine Lab 04/25/24 11:14 Received Blood Culture Stat Lab 04/23/24 19:19 Results Blood Culture Stat Lab 04/25/24 11:16 Results C Reactive Protein AM LABS Lab 04/28/24 04:00 Ordered C Reactive Protein AM LABS Lab 04/28/24 04:00 Ordered C Reactive Protein AM LABS Lab 04/29/24 04:00 Ordered CMV IGG&IGM Panel Stat Lab 04/26/24 19:32 Received CMV PCR [CYTOMEGALOVIRUS DNA, QN, REAL] Routine Lab 04/27/24 03:25 Received CSF Culture & Gram Stain Stat Lab 04/26/24 15:45 Results CYTOMEGALOVIRUS DNA, QL, PCR Routine Lab 04/26/24 15:45 Received Coccidioides AB Immunodiffusio Routine Lab 04/25/24 11:14 Received Complete Blood Count w/Auto AM LABS Lab 04/28/24 04:00 Ordered Complete Blood Count w/Auto AM LABS Lab 04/29/24 04:00 Ordered Comprehensive Metabolic Panel AM LABS Lab 04/28/24 04:00 Ordered Comprehensive Metabolic Panel AM LABS Lab 04/29/24 04:00 Ordered Cryptococcal Antigen (CSF) Stat Lab 04/26/24 15:45 Results EBV IGG & IGM Stat Lab 04/26/24 19:32 Received Fungal Culture not HR/SK/BL Stat Lab 04/25/24 08:45 Uncollected Herpes Simplex Virus DNA Stat Lab 04/26/24 15:45 Received Histoplasma Galactomannan Ag Routine Lab 04/25/24 14:20 Received Lactate (Lactic Acid level) AM LABS Lab 04/28/24 04:00 Ordered Lymes Disease Antibodies CSF Stat Lab 04/26/24 15:45 Received Magnesium AM LABS Lab 04/28/24 04:00 Ordered Magnesium AM LABS Lab 04/29/24 04:00 Ordered NT Pro B Type Natriuretic Pept QAM Lab 04/28/24 06:00 Ordered NT Pro B Type Natriuretic Pept QAM Lab 04/28/24 06:00 Ordered NT Pro B Type Natriuretic Pept QAM Lab 04/29/24 06:00 Ordered Phosphorus AM LABS Lab 04/28/24 04:00 Ordered Phosphorus AM LABS Lab 04/29/24 04:00 Ordered Procalcitonin AM LABS Lab 04/28/24 04:00 Ordered Procalcitonin AM LABS Lab 04/28/24 04:00 Ordered Procalcitonin AM LABS Lab 04/29/24 04:00 Ordered Sputum Culture and Gram Stain Stat Lab 04/25/24 08:48 Uncollected Sputum Culture and Gram Stain Stat Lab 04/27/24 14:10 Received Winkler Enceph.Virus IFA CSF Stat Lab 04/26/24 15:45 Received Vancomycin Trough AM LABS Lab 04/28/24 04:00 Ordered Varicella Zoster IGG&IGM Stat Lab 04/25/24 11:14 Received Completed Studies During Hospitalization Category Date Time Status CT chest abdomen pelvis [[place] [id number] Cat Scan 04/23/24 15:52 Completed ] Stat CT head wo con* [id number] Stat Cat Scan 04/23/24 15:[address] head wo con* [id number] Stat Cat Scan 04/26/24 04:[address] thoracic spin wo con* [id number] Stat Cat Scan 04/23/24 15:52 Completed CXRP [XR chest 1V portable [id number]] Routine Exams 04/27/24 15:03 Completed FL guided lumbarpunc dx* [id number] Routine Exams 04/26/24 08:17 Completed XR chest 1V portable [id number] Routine Exams 04/24/24 12:19 Completed XR chest 1V portable [id number] Routine Exams 04/27/24 07:00 Completed XR chest 1V portable [id number] Stat Exams 04/23/24 11:39 Completed XR chest 1V portable [id number] Stat Exams 04/27/24 12:00 Completed XR chest 1V portable [id number] Stat Exams 04/27/24 13:52 Completed MR head wo con* [id number] Routine MRI 04/26/24 08:17 [place] [id number] Stat Ultrasound 04/23/24 15:52 Completed CV. echo wo/w contrast [id number] Stat Ultrasound 04/24/24 15:52 Completed US renal BI* [id number] Routine Ultrasound 04/24/24 09:36 Completed Laboratory Last Values WBC 12.01 10^3/uL (3.29-11.43) H 04/27/24 03:25 RBC 4.60 10^6/uL (3.85-5.65) 04/27/24 03:25 Hgb 10.80 g/dL (11.27-16.99) L 04/27/24 03:25 Hct 37.7 % (37-53) 04/27/24 03:25 MCV 82.0 fl (82-101) 04/27/24 03:25 MCH 23.5 pg (27-33) L 04/27/24 03:25 MCHC 28.6 g/dL (30-55) L 04/27/24 03:25 RDW 17.7 % (12.1-15.1) H 04/27/24 03:25 Plt Count 410 10^3/cmm (157-399) H D 04/27/24 03:25 MPV 9.5 fL (7.4-10.4) 04/27/24 03:25 Neut % (Auto) 88.2 % 04/27/24 03:25 Lymph % (Auto) 7.5 % 04/27/24 03:25 [place] % (Auto) 3.4 % 04/27/24 03:25 Eos % (Auto) 0.0 % 04/27/24 03:25 Baso % (Auto) 0.3 % 04/27/24 03:25 Neut # (Auto) 10.59 10^3/uL (1.8-7.7) H 04/27/24 03:25 Lymph # (Auto) 0.9 10^3/uL (0.8-4.8) 04/27/24 03:25 [place] # (Auto) 0.4 10^3/uL (0.2-0.9) 04/27/24 03:25 Eos # (Auto) 0.0 10^3/uL (0.0-0.8) 04/27/24 03:25 Baso # (Auto) 0.0 10^3/uL (0.0-0.1) 04/27/24 03:25 Nucleated RBC % (auto) 0 % 04/27/24 03:25 Nucleated RBCs # 0.0 /100WBC 04/27/24 03:25 ESR 108 mm/hr (0-10) H 04/26/24 05:22 PT 15.00 SECONDS (12.1-14.9) H 04/23/24 12:01 INR 1.10 (0.8-1.2) 04/23/24 12:01 APTT 82.5 SECONDS (23.9-36.7) H 04/25/24 11:14 Specimen Type Arterial 04/27/24 06:31 Sample Site Radial, right 04/27/24 06:31 ABG pH 7.35 (7.35-7.45) 04/27/24 06:31 ABG pCO2 32.7 mmHg (35-45) L 04/27/24 06:31 ABG pO2 95.6 mmHg (80.0-100.0) 04/27/24 06:31 ABG PO2/FiO2 Ratio 166 04/24/24 11:56 ABG HCO3 17.8 mmol/L (22-26) L 04/27/24 06:31 ABG O2 Saturation 95.8 04/24/24 20:15 ABG Base Excess -6.9 mmol/L (-2.0-2.0) L 04/27/24 06:31 Jose Angel Test Pos 04/27/24 06:31 A-a O2 Gradient 1.0 mmHg (5-10) L 04/24/24 20:15 Hematocrit 35.6 % (42-52) L 04/27/24 06:31 Hgb O2 Saturation 94.1 % (95-100) L 04/24/24 20:15 Carboxyhemoglobin 1.7 %THgb (0.4-20.1) 04/24/24 20:15 Methemoglobin 0.1 % (0.4-1.5) L 04/24/24 20:15 Total Hemoglobin 13.0 g/dL (14-18) L 04/24/24 20:15 Sodium 144.0 mmol/L (131-143) H 04/24/24 20:15 Potassium 4.5 mmol/L (3.5-5.0) 04/24/24 20:15 Glucose 132.0 mg/dL (70-115) H 04/24/24 20:15 Ionized Calcium 1.3 mmol/L (1.1-1.4) 04/24/24 20:15 O2 Delivery Device Bipap 04/27/24 06:31 O2 Liters/Min 8.0 % 04/27/24 06:31 FiO2 36.0 % 04/24/24 11:56 Sewing Machine Operator ID Ed 04/27/24 06:31 Sodium 145 mmol/L (136-145) 04/27/24 03:25 Potassium 4.3 mmol/L (3.5-5.1) 04/27/24 03:25 Chloride 107 mmol/L (98-107) 04/27/24 03:25 Carbon Dioxide 18 mmol/L (22-29) L 04/27/24 03:25 Anion Gap 24.3 (5-19) H 04/27/24 03:25 BUN 74 mg/dL (8-23) H 04/27/24 03:25 Creatinine 4.3 mg/dL (0.7-1.2) H 04/27/24 03:25 GFR Calculation 13.9 mL/min (90-130) L 04/27/24 03:25 Glucose 187 mg/dL (65-115) H 04/27/24 03:25 POC Glucose 153 mg/dL (70-110) H 04/27/24 11:53 Estimat Average Glucose 272 04/23/24 12:01 Hemoglobin A1c 11.1 % (4.0-6.0) H 04/23/24 12:01 Calculated Osmolality 327 mOsm/kg (285-295) H 04/27/24 03:25 Lactic Acid 1.1 mmol/L (0.5-2.2) 04/25/24 11:14 Lactate 1.4 mmol/L (0.5-2.2) 04/27/24 03:25 Calcium 9.3 mg/dL (8.5-10.5) 04/27/24 03:25 Phosphorus 3.7 mg/dL (2.5-4.5) 04/27/24 03:25 Magnesium 2.3 mg/dL (1.7-2.3) 04/27/24 03:25 Total Bilirubin 0.8 mg/dL (0.15-1.2) 04/27/24 03:25 AST 30 U/L (0-40) 04/27/24 03:25 ALT 8 U/L (0-41) 04/27/24 03:25 Alkaline Phosphatase 116 U/L (40-130) 04/27/24 03:25 Lactate Dehydrogenase 148 U/L (135-225) 04/25/24 11:14 Troponin T Baseline 128 ng/L (0-15) H* 04/23/24 12:01 Troponin T 120 Minute 125.0 ng/L (0-15) H 04/23/24 14:00 Delta Troponin T -3.0 ABS# (0-10) L 04/23/24 14:00 Troponin T Hi Sens 6Hr 122.7 ng/L (0-15) H 04/23/24 19:19 Troponin T Hi Sens 6Hr Delta -5.3 ng/L (0-12) L 04/23/24 19:19 C-Reactive Protein 83.0 mg/L (0.0-4.9) H 04/27/24 03:25 NT-Pro-B Natriuret Pep 8196 pg/mL (0-125) H 04/27/24 03:25 Total Protein 6.5 g/dL (6.6-8.7) L 04/27/24 03:25 Albumin 3.0 g/dL (3.5-5.2) L 04/27/24 03:25 Globulin 3.5 g/dL (1.3-4.6) 04/27/24 03:25 Triglycerides 146 mg/dL (0-150) 04/23/24 14:00 Cholesterol 130 mg/dL (0-200) 04/23/24 14:00 LDL Cholesterol, Calc 77 mg/dL (50-129) 04/23/24 14:00 HDL Cholesterol 24 mg/dL (60-100) L 04/23/24 14:00 LDL/HDL Ratio 3.21 RATIO (0.00-3.22) 04/23/24 14:00 Cholesterol/HDL Ratio 5.42 mg/dL (1.0-5.00) H 04/23/24 14:00 Lipase 28 U/L (13-60) 04/23/24 12:01 Procalcitonin 0.91 ng/mL (0-0.5) H 04/27/24 03:25 TSH 1.81 uIU/mL (0.27-4.20) 04/23/24 14:00 Urine Color Yellow (Yellow) 04/23/24 15:02 Urine Appearance Cloudy (CLEAR) A 04/23/24 15:02 Urine pH 5.0 (5-7) 04/23/24 15:02 Ur Specific Agency 1.014 (1.005-1.030) 04/23/24 15:02 Urine Protein 2+ (Negative) A 04/23/24 15:02 Urine Glucose (UA) 1+ (Normal) H 04/23/24 15:02 Urine Ketones Negative (Negative) 04/23/24 15:02 Urine Blood Negative (Negative) 04/23/24 15:02 Urine Nitrate Negative (Negative) 04/23/24 15:02 Urine Bilirubin Negative (Negative) 04/23/24 15:02 Urine Urobilinogen 1.0 mg/dL (Negative) 04/23/24 15:02 Ur Leukocyte Esterase Negative (Negative) 04/23/24 15:02 Urine RBC 0-2 /hpf (0-2) 04/23/24 15:02 Urine WBC 0-5 /hpf (0-5) 04/23/24 15:02 Ur Squamous Epith Cells 0-5 /hpf (0-5) 04/23/24 15:02 Amorphous Sediment Not Reportable 04/23/24 15:02 Urine Bacteria None seen /hpf (NONE) 04/23/24 15:02 Hyaline Casts 52.11 /lpf 04/23/24 15:02 CSF Appearance Clear (CLEAR) 04/26/24 15:45 CSF Color Colorless (COLORLESS) 04/26/24 15:45 CSF Specific Agency 1.007 04/26/24 15:45 CSF WBC 9 /uL (0-5) H 04/26/24 15:45 CSF RBC 0 10^3/uL (0-0) 04/26/24 15:45 CSF Mononuclear # Auto 0.009 10^3/uL (50-90) L 04/26/24 15:45 CSF Mononuclear WBCs % 100 % (50-90) H 04/26/24 15:45 CSF Polynuclear WBCs # 0.000 10^3/uL (0-10) 04/26/24 15:45 CSF Polynuclear WBCs % 0 % (0-10) 04/26/24 15:45 CSF Diff Comment Yes 04/26/24 15:45 CSF Glucose 124 mg/dL (40-70) H 04/26/24 15:45 CSF Total Protein 62 mg/dL (15-45) H 04/26/24 15:45 Nasal MRSA (PCR) Not detected (Negative) 04/23/24 20:45 Vancomycin Trough 21.3 ug/mL (10-15) H 04/26/24 17:25 Random Vancomycin 24.2 ug/mL (20.0-40.0) 04/27/24 03:25 Adenovirus (PCR) Not detected (NOT DETECT) 04/25/24 09:50 C. pneumoniae DNA (PCR) Not detected (NOT DETECT) 04/25/24 09:50 Coronavirus (PCR) Negative (Negative) 04/23/24 13:19 Coronavirus 229E (PCR) Not detected (NOT DETECT) 04/25/24 09:50 CMV DNA Quant PCR Cancelled 04/26/24 15:45 CMV Qnt PCR Interp Cancelled 04/26/24 15:45 HSV I IgG Ab 48.60 index H 04/25/24 11:14 HSV II IgG 9.20 index H 04/25/24 11:14 Human Metapneumovir PCR Not detected (NOT DETECT) 04/25/24 09:50 Influenza A (H1) PCR Not detected (NOT DETECT) 04/25/24 09:50 Influenza A (PCR) Negative (Negative) 04/23/24 13:19 Influ A (H1/09) PCR Not detected (NOT DETECT) 04/25/24 09:50 Influenza A (H3) PCR Not detected (NOT DETECT) 04/25/24 09:50 Influenza Type A (PCR) Not detected (NOT DETECT) 04/25/24 09:50 Influenza Type B (PCR) Not detected (NOT DETECT) 04/25/24 09:50 M. pneumoniae (PCR) Not detected (NOT DETECT) 04/25/24 09:50 Parainfluenza 1 (PCR) Not detected (NOT DETECT) 04/25/24 09:50 Parainfluenza 2 (PCR) Not detected (NOT DETECT) 04/25/24 09:50 Parainfluenza 3 (PCR) Not detected (NOT DETECT) 04/25/24 09:50 Parainfluenza 4 (PCR) Not detected (NOT DETECT) 04/25/24 09:50 RSV (PCR) Positive (Negative) A 04/23/24 13:19 RSV Type A (PCR) Not detected (NOT DETECT) 04/25/24 09:50 RSV Type B (PCR) Detected (NOT DETECT) A 04/25/24 09:50 Entero/Rhino (PCR) Not detected (NOT DETECT) 04/25/24 09:50 SARS-CoV-2 (PCR) Not detected (NOT DETECT) 04/25/24 09:50 Radiology Impressions Chest/Abdomen/Pelvis CT 04/23/24 15:52 IMPRESSION: 1. Cardiomegaly, mild interstitial edema and small bilateral pleural effusions. 2. Focal nodular opacities and ground-glass in both upper lobes, possibly reflecting alveolar edema or developing infection. Metastatic disease would be difficult to exclude given history of primary malignancy. Consider follow-up CT of the chest in 4-6 weeks to assess for resolution. If persistent, PET-CT may be helpful. IMPRESSION: 1. Moderate right-sided hydronephrosis without evidence of ureteral stone. 2. Mildly complex 4 cm left upper pole renal lesion, detailed evaluation of which is limited by artifact, possibly a simple cyst. Correlation with renal ultrasound is recommended when clinically feasible. Thoracic Spine CT 04/23/24 15:52 IMPRESSION: 1. No evidence of fracture or subluxation of the thoracic spine. Venous Duplex 04/23/24 15:52 IMPRESSION: 1. No sonographic evidence of deep venous thrombosis in either lower extremity. Renal Ultrasound 04/24/24 09:36 IMPRESSION: Moderate right hydronephrosis. No left hydronephrosis. Head CT 04/26/24 04:25 IMPRESSION: 1. No acute intracranial abnormality. 2. Mild sinus inflammatory changes. Head MRI 04/26/24 08:17 IMPRESSION: 1. No evidence of restricted diffusion to suggest acute ischemia. 2. Mild small vessel changes with moderate parenchymal volume loss. 3. Moderate symmetric atrophy temporal lobes and hippocampal formations. 4. Mild mucosal thickening paranasal sinuses and mastoid air cells. 5. No other acute findings. Lumbar Puncture Fluoroscopy 04/26/24 08:17 IMPRESSION: Fluoroscopically guided lumbar puncture. No immediate complications Recent Clincial Data Last Vital Signs Temp 98.7 F 04/27/24 13:30 Pulse 85 04/27/24 16:00 Resp 16 04/27/24 15:11 BP 110/53 04/27/24 16:00 Pulse Ox 94 04/27/24 16:00 O2 Del Method Mechanical Ventilation 04/27/24 16:00 O2 Flow Rate 10 04/27/24 13:30 FiO2 60 04/27/24 16:00 Vital Signs Temp Pulse Resp BP Pulse Ox O2 Del Method O2 Flow Rate 04/27/24 16:00 85 110/53 94 Mechanical Ventilation 04/27/24 15:30 78 114/53 94 04/27/24 15:14 75 04/27/24 15:11 75 16 98 Mechanical Ventilation 04/27/24 15:00 78 119/70 04/27/24 14:30 67 22 H 75/38 98 04/27/24 14:01 20 H 95 04/27/24 14:00 83 22 H 107/60 97 04/27/24 13:30 98.7 F 101 H 25 H 162/77 88 L Nasal Cannula 10 04/27/24 13:00 104 H 31 H 139/85 88 L 04/27/24 12:30 101 H 35 H 165/100 89 L 04/27/24 12:00 100 31 H 165/100 88 L 04/27/24 11:44 100 22 H 94 Nasal Cannula 3 04/27/24 11:30 100 30 H 141/73 90 04/27/24 11:00 90 28 H 156/77 91 04/27/24 10:30 96 29 H 155/77 93 04/27/24 10:00 102 H 32 H 152/90 94 04/27/24 09:32 103 H 22 H 90 Oxymask 3 04/27/24 09:30 104 H 37 H 165/84 87 L 04/27/24 09:00 98.2 F 101 H 33 H 162/83 90 Oxymask 3 04/27/24 08:30 95 30 H 160/70 91 04/27/24 08:00 98 31 H 149/85 93 04/27/24 07:30 95 24 H 165/81 92 04/27/24 07:00 90 27 H 92 04/27/24 06:30 88 28 H 163/69 93 04/27/24 06:00 84 04/27/24 06:00 97 26 H 152/75 93 04/27/24 05:30 96 42 H 177/67 93 04/27/24 05:00 101 H 29 H 191/80 93 FiO2 04/27/24 16:00 60 04/27/24 15:30 04/27/24 15:14 04/27/24 15:11 60 04/27/24 15:00 04/27/24 14:30 04/27/24 14:01 100 04/27/24 14:00 04/27/24 13:30 04/27/24 13:00 04/27/24 12:30 04/27/24 12:00 04/27/24 11:44 04/27/24 11:30 04/27/24 11:00 04/27/24 10:30 04/27/24 10:00 04/27/24 09:32 04/27/24 09:30 04/27/24 09:00 04/27/24 08:30 04/27/24 08:00 04/27/24 07:30 04/27/24 07:00 04/27/24 06:30 04/27/24 06:00 04/27/24 06:00 04/27/24 05:30 04/27/24 05:00 Intake & Output/Weight 04/25/24 04/26/24 04/27/24 04/28/24 06:59 06:59 06:59 06:59 Intake Total 1411.8 / 1411.8 1186.369 / 5728.376 5528 / 1482 114.989 / 114.989 Output Total 925 / 925 1100 / 1100 350 / 350 300 / 300 Balance 486.8 / 486.8 86.369 / 86.369 1132 / 1132 -185.011 / -185.011 Weight 161 kg 157.5 kg 157.546 kg Vitals Last Vital Signs Temp 98.7 F 04/27/24 13:30 Pulse 85 04/27/24 16:00 Resp 16 04/27/24 15:11 BP 110/53 04/27/24 16:00 Pulse Ox 94 04/27/24 16:00 O2 Del Method Mechanical Ventilation 04/27/24 16:00 O2 Flow Rate 10 04/27/24 13:30 FiO2 60 04/27/24 16:00 TS Medications Medications Acetaminophen (Acetaminophen 325 Mg Tablet) 650 mg PO Q6H PRN PRN Reason: FEVER >101.5 Acetylcysteine (Acetylcysteine 200 Mg/Ml Mdv 10 Ml) 100 mg INHALATION Q4H.RESPIRATORY ENRIQUE Last Admin: 04/27/24 15:08 Dose: 100 mg Albuterol Sulfate (Albuterol 2.5 Mg/3 Ml Neb) 2.5 mg INHALATION Q4H.RESPIRATORY PRN PRN Reason: SHORTNESS OF BREATH Last Admin: 04/27/24 15:09 Dose: 2.5 mg Aspirin (Aspirin 81 Mg Ec Tablet) 81 mg PO DAILY [facility] Last Admin: 04/27/24 09:30 Dose: Not Given Atorvastatin Calcium (Atorvastatin 40 Mg Tablet) 40 mg PO QPM [facility] Last Admin: 04/26/24 17:51 Dose: Not Given Diltiazem HCl (Diltiazem Er (24hr) 120 Mg Capsule) 120 mg PO DAILY [facility] Last Admin: 04/27/24 09:30 Dose: Not Given Glucagon (Glucagon 1 Mg/Ml Kit 1 Ml) 1 mg IM ONCE PRN; Protocol PRN Reason: Adult Acute Hypoglycemia Nursing Prot. Heparin Sodium (Porcine) (Heparin 5,000 Unit/Ml Inj 1 Ml) 5,000 unit SUBCUT Q12H [facility] Last Admin: 04/26/24 09:13 Dose: 5,000 unit Hydralazine HCl (Hydralazine 20 Mg/Ml Inj 1 Ml) 10 mg IVP Q4H PRN PRN Reason: BP greater than 180 sys or 110 diastolic Last Admin: 04/27/24 04:20 Dose: 10 mg Dextrose (D5w) 500 mls @ 0 mls/hr IV ONCE PRN; Protocol PRN Reason: Adult Acute Hypoglycemia Prot Dextrose (D10w) 125 mls @ 750 mls/hr IV PRN PRN; Protocol PRN Reason: Adult Acute Hypoglycemia Nursing Protocol Dextrose (D10w) 250 mls @ 1,000 mls/hr IV PRN PRN; Protocol PRN Reason: Adult Acute Hypoglycemia Nursing Protocol Piperacillin Sod/Tazobactam (Sod 3.375 gm/ Sodium Chloride) 50 mls @ 12.5 mls/hr IV Q8H [facility] Last Admin: 04/27/24 11:35 Dose: 12.5 mls/hr Azithromycin 500 mg/ Sodium (Chloride) 250 mls @ 250 mls/hr IV Q24H ENRIQUE; Protocol Last Admin: 04/27/24 09:37 Dose: 250 mls/hr Dexmedetomidine/Sodium Chloride (Precedex) 400 mcg in 100 mls @ 0 mls/hr IV .Q0M ENRIQUE; Protocol Last Titration: 04/26/24 04:04 Dose: 0 mcg/kg/hr, 0 mls/hr Acyclovir 1,600 mg/ Sodium (Chloride) 282 mls @ 270 mls/hr IV Q24H ENRIQUE Last Admin: 04/27/24 14:58 Dose: 270 mls/hr Amiodarone HCl/Dextrose (Nexterone) 360 mg in 200 mls @ 0 mls/hr IV .Q0M ENRIQUE; Protocol Last Titration: 04/27/24 15:04 Dose: 0 mg/min, 0 mls/hr Propofol (Diprivan) 1,000 mg in 100 mls @ 0 mls/hr IV .Q0M ENRIQUE; Protocol Fentanyl (Sublimaze) 1,000 mcg in 100 mls @ 0 mls/hr IV .Q0M ENRIQUE; Protocol Last Admin: 04/27/24 14:18 Dose: 25 mcg/hr, 2.5 mls/hr Norepinephrine Bitartrate (Levophed) 4 mg in 250 mls @ 0 mls/hr IV .Q0M ENRIQUE; Protocol Last Admin: 04/27/24 14:34 Dose: 10 mcg/min, 37.5 mls/hr Ibuprofen (Ibuprofen 200 Mg Tablet) 400 mg PO Q6H PRN PRN Reason: FEVER >101.5 Insulin Glargine (Insulin Glargine 100 Units/1 Ml) 15 unit SUBCUT Q12H ENRIQUE Last Admin: 04/27/24 09:38 Dose: 15 unit Insulin Human Lispro (Insulin Lispro 100 Unit/1 Ml) 0 unit SUBCUT WM&BEDTIME [facility]; Protocol Last Admin: 04/27/24 13:28 Dose: 6 unit Lisinopril (Lisinopril 20 Mg Tablet) 40 mg PO DAILY [facility] Last Admin: 04/27/24 09:30 Dose: Not Given Metoprolol Succinate (Metoprolol Succinate Er (24 Hr) 50 Mg Tablet) 50 mg PO DAILY [facility] Last Admin: 04/27/24 09:30 Dose: Not Given Morphine Sulfate (Morphine 4 Mg/Ml Sdv 1 Ml) 2 mg IVP Q4H PRN PRN Reason: SEVERE PAIN Last Admin: 04/25/24 03:25 Dose: 2 mg Non-Formulary Medication (Brinzolamide-Brimonidine [Simbrinza]) 1 drop ophthalmic (eye) BID [facility] Ondansetron HCl (Ondansetron 2 Mg/Ml Sdv 2 Ml) 4 mg IVP Q8H PRN PRN Reason: vomiting, or N/V if npo Pantoprazole Sodium (Pantoprazole 40 Mg Sdv) 40 mg IVP Q12H [facility] Last Admin: 04/27/24 07:28 Dose: 40 mg Sodium Chloride (Sodium Chloride 3.5% Neb 4 Ml Neb) 4 ml INHALATION BID.RESPIRATORY [facility] Last Admin: 04/27/24 09:25 Dose: 4 ml Vancomycin HCl (Vancomycin 1,000 Mg Sdv (Pharmacy Mix)) 0 mg XX PRN PRN PRN Reason: Pharmacy to Dose Discontinued Medications Allopurinol (Allopurinol 100 Mg Tablet) 100 mg PO DAILY [facility] Last Admin: 04/26/24 09:01 Dose: Not Given Furosemide (Furosemide 10 Mg/Ml Sdv 4ml) 40 mg IVP Q12H [facility] Last Admin: 04/26/24 06:42 Dose: 40 mg Furosemide (Furosemide 10 Mg/Ml Sdv 4ml) 40 mg IVP ONCE ONE Stop: 04/27/24 11:09 Last Admin: 04/27/24 11:47 Dose: 40 mg Heparin Sodium (Porcine) (Heparin 5,000 Unit/Ml Inj 1 Ml) 0 unit IVP PRN PRN; Protocol PRN Reason: Heparin Weight Based Protocol -Subsequent Bolus Last Admin: 04/24/24 05:14 Dose: 5,000 unit Heparin Sodium (Porcine) (Heparin 5,000 Unit/Ml Inj 1 Ml) 0 unit IVP ONCE ONE; Protocol Stop: 04/23/24 19:20 Last Admin: 04/23/24 21:06 Dose: 7,000 unit Hydralazine HCl (Hydralazine 20 Mg/Ml Inj 1 Ml) 10 mg IVP ONCE ONE Stop: 04/24/24 04:25 Last Admin: 04/24/24 04:38 Dose: 10 mg Hydralazine HCl (Hydralazine 20 Mg/Ml Inj 1 Ml) 10 mg IVP ONCE ONE Stop: 04/27/24 00:08 Last Admin: 04/27/24 00:20 Dose: 10 mg Hydralazine HCl (Hydralazine 20 Mg/Ml Inj 1 Ml) 10 mg IVP ONCE ONE Stop: 04/27/24 05:06 Last Admin: 04/27/24 05:10 Dose: 10 mg Heparin Sodium/Sodium Chloride (Heparin Drip) 25,000 unit in 500 mls @ 0 mls/hr IV CONT ENRIQUE; Protocol Last Titration: 04/25/24 04:59 Dose: 10.1 unit/kg/hr, 32 mls/hr Piperacillin Sod/Tazobactam (Sod / Sodium Chloride) 50 mls @ 0 mls/hr [id number] CONT ENRIQUE; Protocol Vancomycin HCl 1,000 mg/ (Sodium Chloride) 250 mls @ 250 mls/hr IV Q24H [facility] Last Infusion: 04/23/24 23:21 Dose: Infused Vancomycin HCl (Vancocin) 1,500 mg in 300 mls @ 200 mls/hr IV Q24H [facility] Last Infusion: 04/25/24 21:00 Dose: Infused Acyclovir 1,000 mg/ Sodium (Chloride) 270 mls @ 270 mls/hr IV Q8H [facility] Last Admin: 04/25/24 13:13 Dose: 270 mls/hr Acyclovir 1,000 mg/ Sodium (Chloride) 270 mls @ 270 mls/hr IV Q12H [facility] Last Infusion: 04/26/24 03:18 Dose: Infused Sodium Chloride (Sodium Chloride 0.9%) Confirm Administered Dose 250 mls @ as directed .ROUTE .STK-MED ONE Stop: 04/26/24 01:56 Last Admin: 04/26/24 02:19 Dose: Not Given Etomidate (Amidate) Confirm Administered Dose 20 mls @ as directed .ROUTE .STK- MED ONE Stop: 04/27/24 13:44 Last Admin: 04/27/24 14:28 Dose: Not Given Sodium Chloride (Sodium Chloride 0.9% (100 Ml)) Confirm Administered Dose 100 mls @ as directed .ROUTE .STK-MED ONE Stop: 04/27/24 13:44 Last Admin: 04/27/24 14:28 Dose: Not Given Propofol (Diprivan) Confirm Administered Dose 1,000 mg in 100 mls @ as directed .ROUTE .STK-MED ONE Stop: 04/27/24 13:46 Last Admin: 04/27/24 14:33 Dose: Not Given Insulin Glargine (Insulin Glargine 100 Units/1 Ml) 50 unit SUBCUT Q12H ENRIQUE Last Admin: 04/25/24 21:27 Dose: 50 unit Lorazepam (Lorazepam 2 Mg/Ml Inj 1 Ml) 0.25 mg IVP ONCE ONE Stop: 04/26/24 09:06 Lorazepam (Lorazepam 2 Mg/Ml Inj 1 Ml) 1 mg IVP ONCE ONE Stop: 04/26/24 12:42 Lorazepam (Lorazepam 2 Mg/Ml Inj 1 Ml) 1 mg IVP ONCE ONE Stop: 04/26/24 14:31 Last Admin: 04/26/24 14:36 Dose: 1 mg Methylprednisolone Sodium Succinate (Methylprednisolone Sod Succ 125 Mg/2 Ml Inj) 125 mg IVP ONCE ONE Stop: 04/25/24 08:47 Last Admin: 04/25/24 10:09 Dose: 125 mg Methylprednisolone Sodium Succinate (Methylprednisolone Sod Succ 40 Mg/Ml Inj) 40 mg IVP Q8H ENRIQUE Metolazone (Metolazone 5 Mg Tablet) 10 mg PO ONCE ONE Stop: 04/25/24 08:45 Last Admin: 04/25/24 11:08 Dose: Not Given Perflutren Protein Type A Microsphe (Perflutren Protein-A Microsphr 0.22 Mg/Ml Sdv 3 Ml) 0 ml IV ONCE ONE Stop: 04/24/24 11:54 Last Admin: 04/24/24 12:03 Dose: 3 ml Propofol (Propofol 10 Mg/Ml Sdv 20 Ml) Confirm Administered Dose 200 mg .ROUTE .STK-MED ONE Stop: 04/27/24 14:06 Succinylcholine Chloride (Succinylcholine 20 Mg/Ml Sdv 10ml) Confirm Administered Dose 400 mg .ROUTE .STK-MED ONE Stop: 04/27/24 13:44 Last Admin: 04/27/24 14:33 Dose: Not Given Succinylcholine Chloride (Succinylcholine 20 Mg/Ml Sdv 10ml) 160 mg IVP NOW ONE Stop: 04/27/24 14:33 Last Admin: 04/27/24 14:33 Dose: 160 mg Allergies No Known Allergies Allergy (Verified 04/09/22 15:36) Home Medications aspirin 81 mg tablet,delayed release (Adult Low Dose Aspirin) 81 mg PO DAILY 01/02/21 [History Confirmed 04/23/24] hydrochlorothiazide 25 mg tablet 25 mg PO DAILY 01/02/21 [History Confirmed 04/23/24] allopurinol 100 mg tablet 100 mg PO DAILY 01/03/22 [History Confirmed 04/23/24] atorvastatin 40 mg tablet 40 mg PO QPM 04/23/24 [History Confirmed 04/23/24] brinzolamide 1 %-brimonidine 0.2 % eye drops,suspension (Simbrinza) 1 drp ophthalmic (eye) BID 04/23/24 [History Confirmed 04/23/24] diltiazem HCl 120 mg capsule,extended release 24 hr 120 mg PO DAILY 04/23/24 [History Confirmed 04/23/24] furosemide 40 mg tablet 40 mg PO BID 04/23/24 [History Confirmed 04/23/24] insulin degludec 200 unit/mL (3 mL) subcutaneous pen (Tresiba FlexTouch U-200 insulin) 100 unit SUBCUT BID 04/23/24 [History Confirmed 04/23/24] insulin lispro 100 unit/mL subcutaneous pen (Humalog KwikPen (U-100) Insulin) 50 unit SUBCUT .WITH MEALS 04/23/24 [History Confirmed 04/23/24] lisinopril 40 mg tablet 40 mg PO DAILY 04/23/24 [History Confirmed 04/23/24] ondansetron HCl 4 mg tablet 4 mg PO Q6H PRN Nausea And Vomiting 04/23/24 [History Confirmed 04/23/24] potassium chloride 10 mEq tablet,extended release 20 meq PO BID 04/23/24 [History Confirmed 04/23/24] Discharge Plan Discharge Patient Disposition: Home Condition: Stable Prescriptions: No Action aspirin [Adult Low Dose Aspirin] 81 mg tablet,delayed release (DR/EC) 81 mg PO DAILY hydrochlorothiazide 25 mg tablet 25 mg PO DAILY allopurinol 100 mg tablet 100 mg PO DAILY furosemide 40 mg tablet 40 mg PO BID atorvastatin 40 mg tablet 40 mg PO QPM ondansetron HCl 4 mg tablet 4 mg PO Q6H PRN (Reason: Nausea And Vomiting) potassium chloride 10 mEq tablet extended release 20 meq PO BID diltiazem HCl 120 mg capsule,extended release 24hr 120 mg PO DAILY lisinopril 40 mg tablet 40 mg PO DAILY Simbrinza 1-0.2 % drops,suspension 1 drp ophthalmic (eye) BID insulin degludec [Tresiba FlexTouch U-200] 200 unit/mL (3 mL) insulin pen 100 unit SUBCUT BID insulin lispro [Humalog KwikPen Insulin] 100 unit/mL Insulin Pen 50 unit SUBCUT .WITH MEALS Rx Instructions: inject 50 units subq with meals Referrals: Antionette Saavedra MD [Primary Care Provider] - Patient Instructions: Opioid Safety Transfer Attestations Time Spent in Transfer Care: critical care time Critical Care Time (min): 35 Quality Metrics Clinical Quality Measures [ No reported AMI, CVA or VTE this stay] Coding Level of Care Code Acute Code for Chg Fwd Diagnoses Nausea & vomiting R11.2 Chronic kidney disease N18.9 History of nonmelanoma skin cancer Z85.828 Immunosuppression D84.9 Weakness R53.1 Respiratory syncytial virus B33.8 Increased anion gap metabolic acidosis E87.29 NSTEMI (non-ST elevated myocardial infarction) I21.4 Fever R50.9 Acute encephalopathy G93.40 Acute hypoxic respiratory failure J96.01 Congestive heart failure I50.9 Pneumonia J18.9 Shingles B02.9 Viral meningitis A87.9 Collapse of left lung J98.11
--- NOTE | 2024-04-27 16:37 | PICC.NOTE ---
Triple lumen PICC placed to right basilic vein. Referred to vascular access nurse for PICC placement due to use of vasopressors. Risks and benefits discussed and informed consent obtained via phone from pt spouse, Edna. Right arm assessed with right basilic vein measuring 4.7 mm, straight, and apparent best choice for placement. Using sterile technique and MST, right basilic vein accessed x 1 stick. Mid-arm circumference measured 10 cm from right AC 37 cm. Trimmed cath 51 cm with 1 cm external length noted. CXR shows tip in SVC, in good position for use per radiologist. Line secured with stat-lock. Insertion site covered with Secureport IV and TSM. Report given to bedside nurse, AVIVA Perez.
[2024-04-27 16:45] LABS: ABG PCO2 44.3 mmHg (35-45); ABG PH Result 7.26 (7.35-7.45); Alveolar-Arterial Oxygen Gradi 41.2 mmHg (5-10); Arterial Blood Gas Hematocrit 33.3 % (42-52); Base Excess ABG -6.9 mmol/L (-2.0-2.0); Blood Gas Allen Test Pos; Blood Gas Operator Identificat CAK; Blood Gas Sample Site Radial, left; Blood Gas Sample Type Arterial; Blood Gas Tidal Volume 0.55; Carboxyhemoglobin 1.1 %THgb (0.4-20.1); HCO3 ABG 19.9 mmol/L (22-26); HGB O2 Sat 85.4 % (95-100); Ionized Calcium Level - ABG 1.3 mmol/L (1.1-1.4); Methemoglobin 1.2 % (0.4-1.5); Oxygen Device VENT; Oxygen Saturation ABG 87.3; PO2 ABG 58.7 mmHg (80.0-100.0); PO2 FiO2 Ratio Arterial Blood 97; Total Hemoglobin 10.9 g/dL (14-18)
--- NOTE | 2024-04-27 16:57 | PC.NURSE ---
patient has been accepted to [facility]. Per Osvaldo with the transfer center, patient is going to the [facility] medical ICU 8. report#: [phone] Nurse called patient's Edna and alerted her to bed acceptance. WIll update when they leave. Nurse called medical ICU at [phone]. Spoke to AVIVA alcala who took report. [facility] ambulance is unavailable at this time. Attempted to go by air but unable to due to weather. Priscila called [facility] ground transport team at [phone]. Their dispatch gathered transport information and will call back.
--- NOTE | 2024-04-27 17:01 | XRR_ITS ---
PROCEDURE INFORMATION: Exam: XR Chest Exam date and time: 04/27/2024 5:16 PM Age: 68 years old Clinical indication: Device placement; Ett placement (vent status); Additional info: Advance et tube TECHNIQUE: Imaging protocol: Radiologic exam of the chest. Views: 1 view. COMPARISON: CR XR chest 1V portable [id number] 04/27/2024 3:44 PM FINDINGS: Tubes, catheters and devices: There has been interval advancement of the endotracheal tube, tip terminates approximately 6.5 cm above the ronal. Nasogastric tube extends into the left upper quadrant. Right PICC line tip terminates in the region of the SVC. Lungs: Interval improvement in aeration of the right lung base. Pleural spaces: No pleural effusion or pneumothorax noted. Heart/Mediastinum: There remains complete whiteout of the left hemithorax with mediastinal shift indicating atelectasis. Bones/joints: Unremarkable. XR/XR chest 1V portable [id number] IMPRESSION: 1. Interval advancement of the endotracheal tube, tip now terminates approximately 6.5 cm above the ronal. 2. Interval improvement in aeration of the right lung base. 3. Persistent whiteout of the left hemithorax with mediastinal shift indicating atelectasis.
[2024-04-27] MEDS: propofol 1,000 MG/100 ML INJ 37.81 MG IV ×3 (17:21→19:26)
[2024-04-27 17:33] LABS: Glucose Point of Care 142 mg/dL (70-110)
--- NOTE | 2024-04-27 18:28 | PC.NURSE ---
SHift SUmmary: Due to increased work of breathing, increased oxygen requirements, and little reserve due to left lung whiteout, patient was intubated. No complications with intubation. Pending transfer to [facility], currently waiting on ground transport to arrive.
--- NOTE | 2024-04-27 19:48 | PC.NURSE ---
Patient left unit with [facility] critical transport at 1940. 2 bags left with patint including clothing, cell phone encoding clerk, and his home [employer] equipment.
[2024-04-28 17:40] LABS: Cytomegalovirus Antibody (IGG) <0.60 U/mL; Cytomegalovirus Antibody (IGM) <30.00 AU/mL; EBV IGM TEST <36.00 U/mL
[2024-04-28 18:35] LABS: Aspergillus AG,EIA,Serum NOT DETECTED; Aspergillus Galactomannan Inde <0.50
[2024-04-29 09:09] LABS: Fungitell 1-3-B Glucan Assay 72 pg/ml; Interpretation Indeterminate (Negative)
[2024-04-29 23:48] LABS: Histoplasma Galactomannan Ag <0.2 ng/mL
[2024-04-30 15:05] LABS: CMV DNA By PCR Not Detected (Not Detected); CMV DNA, QN PCR Not Detected Log IU/mL (Not Detected)
[2024-04-30 17:05] LABS: Blastomyces Antigen Interpret NEGATIVE; Blastomyces Antigen Result NONE DETECTED
[2024-05-01 12:25] LABS: Lyme Disease AB (IGG),IBL NO BANDS DETECTED; Lyme Disease AB (IGM), IBL NO BANDS DETECTED
[2024-05-01 13:25] LABS: Cytomegalovirus DNA,QL RT PCR Not Detected (Not Detected); Cytomegalovirus Source Results Below
[2024-05-01 15:31] LABS: HSV 1 DNA Not Detected (Not Detected); HSV 2 DNA Not Detected (Not Detected); HSV Source Results Below
[2024-05-02 22:35] LABS: Coccidioides IgG Antibody NEGATIVE; Coccidioides IgM Antibody NEGATIVE
[2024-05-02 23:40] LABS: St. Louis Enceph.Virus IGG CSF <1:1; St. Louis Enceph.Virus IGM CSF <1:1
== END 2024-04-27 22:55 | disposition short-term general hospital (02) | DRG 871 ==
LOC: ER 15:22 → MEDSURG 18:00 → ICU 04-24 21:15
PROVIDERS: Emergency Medicine; Internal Medicine; Admitting Provider Family Medicine; Emergency Provider Emergency Medicine; PCP Family Medicine; Visit Provider Family Medicine
DX: A41.9 Sepsis, unspecified organism (principal); G92.9 Unspecified toxic encephalopathy; I21.4 Non-ST elevation (NSTEMI) myocardial infarction; N18.6 End stage renal disease; J15.9 Unspecified bacterial pneumonia; R65.21 Severe sepsis with septic shock; G93.40 Encephalopathy, unspecified; D84.9 Immunodeficiency, unspecified; E87.20 Acidosis, unspecified; I13.2 Hypertensive heart and chronic kidney disease with heart failure and with stage 5 chronic kidney disease, or end stage renal disease; A87.9 Viral meningitis, unspecified; J98.19 Other pulmonary collapse; E66.2 Morbid (severe) obesity with alveolar hypoventilation; Z68.43 Body mass index [BMI] 50.0-59.9, adult; R57.9 Shock, unspecified; N13.30 Unspecified hydronephrosis; N17.9 Acute kidney failure, unspecified; B97.4 Respiratory syncytial virus as the cause of diseases classified elsewhere; I50.9 Heart failure, unspecified; E11.22 Type 2 diabetes mellitus with diabetic chronic kidney disease; Z79.4 Long term (current) use of insulin; B02.9 Zoster without complications; T17.990A Other foreign object in respiratory tract, part unspecified in causing asphyxiation, initial encounter; W44.F9XA Other object of natural or organic material, entering into or through a natural orifice, initial encounter; E78.5 Hyperlipidemia, unspecified; I48.91 Unspecified atrial fibrillation; R45.1 Restlessness and agitation; Z85.820 Personal history of malignant melanoma of skin; Z95.5 Presence of coronary angioplasty implant and graft; Z79.82 Long term (current) use of aspirin
CPT/HCPCS: 36415; 36416; 36573; 36600; 51702; 62328; 70450; 70551; 71045; 71250; 72128; 74176; 76770; 80048; 80051; 80053; 80061; 80202; 80503; 81001; 82330; 82803; 82805; 82945; 82962; 83036; 83605; 83615; 83690; 83735; 83880; 84100; 84145; 84157; 84315; 84443; 84484; 85025; 85610; 85651; 85730; 86140; 86617; 86635; 86653; 86664; 86665; 86695; 86696; 86787; 87040; 87070; 87075; 87086; 87205; 87305; 87327; 87385; 87449; 87486; 87496; 87530; 87581; 87633; 87637; 89050; 92523; 92610; 93005; 93970; 94002; 94640; 94664; 94669; 94799; 95816; 96372; 96374; 96376; 99285; A4222; C1751; C8929; J0133; J0283; J0330; J0360; J0456; J1644; J1815; J1940; J2060; J2270; J2470; J2543; J2704; J2919; J3010; J3370; J7050; J7608; J7613